=== PATIENT | female | born 1985 | race Caucasian/White ===

== ENCOUNTER 2017-08-30 02:33 | Emergency (ER) | payer SELFPAY ==
[~2017-08-30] VITALS: Ht 172.7 cm; Wt 83.9 kg
[~2017-08-30 02:33] MED LIST: AZIT-21 PO; DOXY100C2 PO; PRCD5U PO; PRM25T PO
[2017-08-30] MEDS ORDERED: CLIN150C17 PO (02:55)
--- NOTE | 2017-08-30 02:56 | ED EENT ---
History of Present Illness General Chief Complaint: Dental Problems/Pain Stated Complaint: DENTAL PAIN Source: patient Exam Limitations: no limitations History of Present Illness Date Seen by Provider: Aug 30, 2017 Time Seen by Provider: 02:51 Initial Comments Patient presents to the ER by private conveyance with a chief complaint that she is having left jaw and upper teeth molar pain. She says she's had dental pain since she was 19. She is having no discharge, fevers, nausea vomiting or immunocompromise. She does not follow with a dentist. Allergies and Home Medications Allergies Coded Allergies: Penicillins (Verified Allergy, Unknown, 10/31/07) Home Medications No Active Prescriptions or Reported Meds Patient Home Medication List Home Medication List Reviewed: Yes Review of Systems Constitutional: No chills, No diaphoresis Eyes: Denies Blindness, Denies Blurred Vision Ears: Denies Dizziness, Denies Pain Nose: denies clots, denies congestion Mouth: denies clots, denies loose teeth Throat: denies pain, denies swelling Respiratory: No cough, No short of breath Cardiovascular: No chest pain, No palpitations Past Gofigao-Kgjkvr-Pykglo Hx Patient Social History Alcohol Use: Denies Use Smoking Status: Current Everyday Smoker Type Used: Cigarettes Recent Foreign Travel: No Contact w/Someone Who Travel: No Physical Exam General Appearance: WD/WN, no apparent distress Eyes: bilateral eye normal inspection, bilateral eye PERRL, bilateral eye EOMI Ears: bilateral ear auricle normal, bilateral ear canal normal, bilateral ear TM normal Nose: normal inspection; No active bleeding Mouth/Throat: other (not one single tooth that is not a black, charrred, stump. No obvious abscess in the gingiva or discharge seen.) Neck: non-tender, supple, normal inspection Cardiovascular: normal peripheral pulses, regular rate, rhythm Respiratory: chest non-tender, lungs clear Progress/Results/Core Measures My Orders Orders - DOMINIK GONG Lidocaine 2% Viscous 15 Ml (Xylocaine Vi (08/30/17 03:00) Ketorolac Injection (Toradol Injection) (08/30/17 03:00) Departure Impression Primary Impression: Dental caries Disposition: 01 HOME, SELF-CARE Condition: Stable Departure-Patient Inst. Decision time for Depature: 02:53 Referrals: NO,LOCAL PHYSICIAN (PCP/Family) Primary Care Physician Patient Instructions: Dental Pain (DC) Add. Discharge Instructions: You can use Orajel or the viscous lidocaine and put on some gauze and I down on top of the teeth that are causing the pain and hold there. You can use Tylenol 1000 mg every 8 hours in addition to ibuprofen 800 mg every 8 hours as needed for pain. Ice to the face as well as heating pads can be helpful. 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 Follow up with a dentist. All discharge instructions reviewed with patient and/or family. Voiced understanding. Scripts Clindamycin HCl (Clindamycin HCl) 150 Mg Capsule 450 MG PO TID for 7 Days, #63 CAP 0 Refills Prov: DOMINIK GONG 08/30/17 DOMINIK GONG Aug 30, 2017 02:56
[2017-08-30] MEDS ORDERED: LIDOCAINE 2% VISCOUS 15 ML UDC PO ONE (03:00)
[2017-08-30] MEDS ORDERED: KETOROLAC 30 MG/ML VIAL IM ONE (03:00)
[2017-08-30 03:05] VITALS: BP 139/93
== END 2017-08-30 03:05 | disposition home or self-care (01) ==
LOC: EDUNIT# 02:33 → ER 02:36
DX: K02.9 Dental caries, unspecified (principal); Z88.0 Allergy status to penicillin
CPT/HCPCS: 96372; 99284

== ENCOUNTER 2018-07-23 01:05 | Emergency (ER) | payer SELFPAY ==
[~2018-07-23] VITALS: Ht 172.7 cm; Wt 81.6 kg
[~2018-07-23 01:05] MED LIST changes: +CLIN150C17 PO
[2018-07-23] MEDS ORDERED: ONDANSETRON 4 MG (ZOFRAN) ORAL DISSOLVE TAB PO ONE (03:30)
[2018-07-23] MEDS ORDERED: KETOROLAC 60 MG/2 ML VIAL IM STA (04:11)
[2018-07-23] MEDS ORDERED: morphine INJ 10 MG/ML 1ML (SYR OR VIAL) IM STA (04:11)
[2018-07-23] MEDS ORDERED: cefTRIAXone 1,000 MG/2.86 ml vial (IM ONLY) IM ONE (04:15)
[2018-07-23] MEDS ORDERED: LIDOCAINE 1% INJ 20 ML 20 ML VIAL INJ ONE (04:15)
[2018-07-23] MEDS ORDERED: RX-ONDANSETRON 4 MG ODT (ZOFRAN) PPK #4 PO STA (04:58)
[2018-07-23] MEDS ORDERED: RX-HYDROCODONE/APAP 5/325 MG #4 TAB PK PO PRN (05:00)
--- NOTE | 2018-07-23 05:05 | ED EENT ---
History of Present Illness General Chief Complaint: Dental Problems/Pain Stated Complaint: DENTAL PAIN,FEVER,VOMITING Nursing Triage Note: Pt arrived by private vehicle for chief complaint of vomiting and dental pain. Pt stated she has had tooth infections for several years now, but this one started 3 days ago. Pt stated she started an antibiotic - clindamycin, but has only had 1 dose of 4 she has taken. This is because pt has can't keep anything down and everything she eats or drinks comes up. Pt stated she can't eat or sleep because her pain is a 9.9/10. Pain is located on bottom left side. Source: patient Exam Limitations: no limitations History of Present Illness Date Seen by Provider: Jul 23, 2018 Time Seen by Provider: 03:21 Initial Comments Evaluation affected by daylight saving time. Patient here with report of significant dental caries. She was seen and started on clindamycin which she is taking but she is only able to take one dose due to nausea and vomiting. Complains of significant pain and is unable to take any lowb-bky-nlcbsxn pain medicine. Timing/Duration: gradual, last week Severity: moderate, severe Location: mouth, dental (left lower) Prearrival Treatment: over the counter meds, prescription meds Associated Symptoms: No cough; facial pain/swelling; No fever; tooth pain Allergies and Home Medications Allergies Coded Allergies: Penicillins (Verified Allergy, Unknown, 10/31/07) Home Medications Clindamycin HCl 150 Mg Capsule, 450 MG PO TID Prescribed by: DOMINIK GONG on 08/30/17 0255 Patient Home Medication List Home Medication List Reviewed: Yes Review of Systems Review of Systems Constitutional: see HPI; No chills, No fever Ears: No Symptoms Reported Nose: no symptoms reported Mouth: see HPI, pain, swelling Throat: no symptoms reported Respiratory: no symptoms reported Cardiovascular: no symptoms reported Skin: no symptoms reported Past Kdrdzsz-Uobuwb-Wggjpp Hx Past Med/Social Hx: Reviewed Nursing Past Med/Soc Hx Patient Social History Alcohol Use: Denies Use Recreational Drug Use: No Smoking Status: Current Everyday Smoker Type Used: Cigarettes 2nd Hand Smoke Exposure: Yes Recent Foreign Travel: No Contact w/Someone Who Travel: No Recent Infectious Disease Expo: No Recent Hopitalizations: No Physical Abuse: No Sexual Abuse: No Mistreated: No Fear: No Immunizations Up To Date Tetanus Booster (TDap): Less than 5yrs Seasonal Allergies Seasonal Allergies: No Past Medical History Surgeries: No Respiratory: No Cardiac: No Neurological: No Genitourinary: No Gastrointestinal: No Musculoskeletal: No Endocrine: No HEENT: No Cancer: No Psychosocial: No Integumentary: No Family Medical History Reviewed Nursing Family Hx Physical Exam Vital Signs Vital Signs - First Documented 07/23/18 03:02 Temp 97.6 Pulse 86 Resp 20 B/P (MAP) 126/99 (108) Pulse Ox 100 O2 Delivery Room Air Height, Weight, BMI Height: 5'8.00" Weight: 180lbs. 0oz. [id number]; BMI Method:Stated General Appearance: WD/WN, no apparent distress Eyes: bilateral eye normal inspection, bilateral eye PERRL, bilateral eye EOMI Ears: bilateral ear auricle normal, bilateral ear canal normal, bilateral ear TM normal Nose: normal inspection Mouth/Throat: pharynx normal, mandibular swelling (left lower), other (every tooth involved with significant dental caries to the gumline for increasing redness and a little swelling to the left lower posterior area.) Neck: full range of motion; No lymphadenopathy (R); lymphadenopathy (L) Cardiovascular: regular rate, rhythm, no murmur Respiratory: lungs clear, normal breath sounds Neurologic/Psychiatric: alert, oriented x 3 Skin: normal color, warm/dry Progress/Results/Core Measures Results/Orders My Orders Orders - KEMAL CRAVEN MD Ondansetron Oral Dissolve Tab (Zofran (07/23/18 03:30) Morphine Injection (Morphine Injection (07/23/18 04:11) Ceftriaxone For Im Use (Rocephin For Im (07/23/18 04:15) Lidocaine 1% Inj 20 Ml (Xylocaine 1% Inj (07/23/18 04:15) Ketorolac Injection (Toradol Injection) (07/23/18 04:11) Rx-Ondansetron Po (Rx-Zofran Po) (07/23/18 04:58) Rx-Hydrocodone/Apap 5-325 Mg (Rx-Vicodin (07/23/18 05:00) Medications Given in ED Current Medications Medications Dose Ordered Sig/Baldev Route Start Time Stop Time Status Last Admin Dose Admin Ceftriaxone Sodium 1,000 mg ONCE ONCE IM 07/23/18 04:15 07/23/18 04:16 DC 07/23/18 04:46 1,000 MG Lidocaine HCl 2.1 ml ONCE ONCE INJ 07/23/18 04:15 07/23/18 04:16 DC 07/23/18 04:47 2.1 ML Ondansetron HCl 4 mg ONCE ONCE PO 07/23/18 03:30 07/23/18 03:31 DC 07/23/18 03:26 4 MG Vital Signs/I&O 07/23/18 03:02 Temp 97.6 Pulse 86 Resp 20 B/P (MAP) 126/99 (108) Pulse Ox 100 O2 Delivery Room Air Blood Pressure Mean: 108 Progress Progress Note : Progress Note Seen and evaluated. Ondansetron by mouth given. She did vomit later. She states may be from the pain. Toradol 60 mg IM, morphine 8 mg IM and Rocephin 1 g IM ordered. We will send patient home with a go pack of Zofran and hydrocodone. Further prescriptions outpatient. Patient understands she needs to follow up with a dentist HATTIE. Discharged home with return precautions. Patient verbalize understanding instructions and agreement with plan. Departure Impression Primary Impression: Dental caries Disposition: HOME, SELF-CARE Condition: Stable Departure-Patient Inst. Decision time for Depature: 05:07 Referrals: NO,LOCAL PHYSICIAN (PCP/Family) Primary Care Physician Patient Instructions: Tooth Abscess (DC), Dental Pain (DC) Add. Discharge Instructions: All discharge instructions reviewed with patient and/or family. Voiced understanding. You may take jkol-tek-unhcjul ibuprofen 800 mg every 8 hours as needed for pain. Take pain medications as prescribed. If you're not taking the pain medicine you may take Tylenol/acetaminophen 1000 mg every 8 hours as needed for pain. Do not take both prescribed pain medicine and acetaminophen at the same time as they both have acetaminophen in them. Drink plenty of fluids. Follow-up with the dentist HATTIE. Return for worse pain, breathing or swallowing problems, weakness or other concerns as needed. Scripts Promethazine HCl (Promethazine Tablet) 25 Mg Tablet 25 MG PO Q8H PRN for NAUSEA/VOMITING, #10 TAB 0 Refills Prov: KEMAL CRAVEN MD 07/23/18 Hydrocodone Bit/Acetaminophen (Hydrocodone/Acetaminophen 5/325mg Tablet) 1 Tab Tab 1 EACH PO Q6H PRN for PAIN-MODERATE MDD 10, #6 TAB 0 Refills Prov: KEMAL CRAVEN MD 07/23/18 KEMAL CRAVEN MD Jul 23, 2018 05:05
[2018-07-23] MEDS ORDERED: PROM25TA14 PO (05:10)
[2018-07-23] MEDS ORDERED: ACHD5005 PO (05:10)
[2018-07-23 05:19] VITALS: BP 124/95
== END 2018-07-23 05:19 | disposition home or self-care (01) ==
LOC: EDUNIT# 01:05 → ER 01:07
DX: K02.9 Dental caries, unspecified (principal); F17.210 Nicotine dependence, cigarettes, uncomplicated; Z88.0 Allergy status to penicillin
CPT/HCPCS: 99284

== ENCOUNTER 2019-05-10 05:52 | Emergency (ER) | payer SELFPAY ==
[~2019-05-10] VITALS: Ht 171 cm; Wt 81.3 kg
[~2019-05-10 05:52] MED LIST changes: +ACHD5005 PO; +PROM25TA14 PO
[2019-05-10] MEDS ORDERED: LACTATED RINGERS 1,000 ML IV ONE ×2 (06:19→07:13)
[2019-05-10] MEDS ORDERED: LACTATED RINGERS 1,000 ML IV STA (06:22)
[2019-05-10] MEDS ORDERED: KETOROLAC 30 MG/ML VIAL IVP STA (06:22)
[2019-05-10 06:30] LABS: BASOPHILS % (AUTO) 0 % (0-10); EOSINOPHILS % (AUTO) 0 % (0-10); HEMATOCRIT 40 % (35-52); HEMOGLOBIN 13.6 G/DL (11.5-16.0); LYMPHOCYTES # (AUTO) 1.6 X 10^3 (1.0-4.0); LYMPHOCYTES % (AUTO) 10 % (12-44); MEAN CORPUSCULAR HEMOGLOBIN 31 PG (25-34); MEAN CORPUSCULAR HGB CONC 34 G/DL (32-36); MEAN CORPUSCULAR VOLUME 92 FL (80-99); MEAN PLATELET VOLUME 11.4 FL (7.4-10.4); MONOCYTES # (AUTO) 1.2 X 10^3 (0.0-1.0); MONOCYTES % (AUTO) 7 % (0-12); NEUTROPHILS # (AUTO) 13.3 X 10^3 (1.8-7.8); NEUTROPHILS % (AUTO) 83 % (42-75); PLATELET COUNT 226 10^3/uL (130-400); RED CELL DISTRIBUTION WIDTH 15.8 % (10.0-14.5); WHITE BLOOD COUNT 16.1 10^3/uL (4.3-11.0)
[2019-05-10] MEDS ORDERED: ONDANSETRON 4 MG/2 ML (SDV) Z0FRAN IVP ONE (06:30)
--- NOTE | 2019-05-10 06:30 | ED Respiratory ---
General Stated Complaint: N,V,POSS FEVER Source: patient Exam Limitations: no limitations (JESSICA ROBLES,MED STUDENT) History of Present Illness Date Seen by Provider: May 10, 2019 Time Seen by Provider: 06:13 Initial Comments Pt ambulates into ED with CC of shortness of breath, cough, nausea and vomiting. States she had cough, chest congestion and malaise beginning two weeks ago that has progressively worsened. She went to see Lenin at [facility], who prescribed her antibiotics and steroids, but she is not able to keep any medications down or eat/drink due to vomiting, which began about three days ago. She associates her vomiting with central chest pain she describes as achy that radiates to her back and lightheadedness. Also notes it is harder to breath if she is lying down or if she exerts herself. Timing/Duration: week, getting worse Severity: moderate Prior Episodes/Possible Cause: no prior episodes Modifying Factors: Worse With Activity, Worse With Coughing, Worse With Lying Down; Improves With Rest Associated Symptoms: cough, dizziness, fever/chills, headache, lightheadedness, muscle aches, nasal congestion, shortness of breath (JESSICA ROBLES,MED STUDENT) Allergies and Home Medications Allergies Coded Allergies: Penicillins (Verified Allergy, Unknown, 10/31/07) Home Medications Clindamycin HCl 150 Mg Capsule, 450 MG PO TID Prescribed by: DOMINIK GONG on 08/30/17 0255 Hydrocodone Bit/Acetaminophen 1 Tab Tab, 1 EACH PO Q6H PRN for PAIN-MODERATE Prescribed by: KEMAL CRAVEN on 07/23/18 0510 Promethazine HCl 25 Mg Tablet, 25 MG PO Q8H PRN for NAUSEA/VOMITING Prescribed by: KEMAL CRAVEN on 07/23/18 0510 Patient Home Medication List Home Medication List Reviewed: Yes (JESSICA ROBLES,MED STUDENT) Review of Systems Review of Systems Constitutional: chills, dizziness, fever, malaise, weakness EENTM: dental problems (extensive dental caries), nose congestion; No hearing loss, No ear pain, No eye pain, No vision loss, No nose pain, No throat pain, No throat swelling Respiratory: see HPI, cough, dyspnea on exertion, orthopnea, short of breath, other (pain with deep inspiration) Cardiovascular: chest pain (achy, onset when vomiting yesterday, thinks she pulled a muscle); No edema, No palpitations Gastrointestinal: No abdominal pain, No constipation, No diarrhea; loss of appetite, nausea, vomiting Genitourinary: decreased output; No incontinence, No pain Musculoskeletal: back pain (radiates from her chest to back ); No joint pain; muscle weakness Skin: No lesions, No lumps, No rash Psychiatric/Neurological: Denies Anxiety, Denies Depressed; Headache (JESSICA ROBLES,BEL STUDENT) Past Vphmtja-Bsoifd-Vzbnan Hx Patient Social History Type Used: Cigarettes 2nd Hand Smoke Exposure: Yes Recent Foreign Travel: No Contact w/Someone Who Travel: No Recent Hopitalizations: No (JESSICA ROBLES,Visi[employer] STUDENT) Immunizations Up To Date Tetanus Booster (TDap): Less than 5yrs (JESSICA ROBLESVisiarc STUDENT) Seasonal Allergies Seasonal Allergies: No (JESSICA ROBLES MED STUDENT) Past Medical History Surgeries: No Respiratory: No Cardiac: No Neurological: No Genitourinary: No Gastrointestinal: No Musculoskeletal: No Endocrine: No HEENT: No Cancer: No Psychosocial: No Integumentary: No (JESSICA ROBLES,Visi[employer] STUDENT) Family Medical History Cancer (lung, father ) (JESSICA ROBLESVisiarc STUDENT) Physical Exam Vital Signs - First Documented 05/10/19 06:00 Temp 37.4 Pulse 98 Resp 20 B/P (MAP) 139/99 (112) Pulse Ox 98 (KEMAL CRAVEN MD) Capillary Refill : (JESSICA ROBLESVisiarc STUDENT) Height: 5'8.00" Weight: 180lbs. 0oz. 81.581958ix; BMI Method:Stated General Appearance: WD/WN, no apparent distress Eyes: Bilateral Eye Normal Inspection, Bilateral Eye PERRL, Bilateral Eye EOMI HEENT: TMs normal, pharyngeal erythema, other (beefy red nostrils, very poor dentition w/ caries, nicotine stains on tongue and teeth ) Neck: supple, tender lateral (TTP R ) Respiratory: chest non-tender, no respiratory distress, no accessory muscle use, crackles (L lower lung base ) Cardiovascular: no edema, no gallop, no murmur, tachycardia Gastrointestinal: non tender, soft Extremities: no pedal edema, no calf tenderness, normal capillary refill Neurologic/Psychiatric: alert, oriented x 3 Skin: normal color, warm/dry Lymphatic: no adenopathy (anterior/posterior cervical, supra/infraclavicular ) (JESSICA ROBLES,MED STUDENT) General Appearance: WD/WN, no apparent distress Respiratory: chest non-tender, no respiratory distress Cardiovascular: no murmur, tachycardia Gastrointestinal: non tender, soft Neurologic/Psychiatric: alert, oriented x 3 (KEMAL CRAVEN MD) Progress/Results/Core Measures Suspected Sepsis SIRS Temperature: Pulse: Respiratory Rate: Laboratory Tests 05/10/19 06:14: White Blood Count 16.1H Blood Pressure / Mean: Laboratory Tests 05/10/19 06:14: Creatinine 0.83, Platelet Count 226, Total Bilirubin 1.0 (JESSICA ROBLES,MED STUDENT) Results/Orders Lab Results Laboratory Tests Test 05/10/19 06:14 Range/Units White Blood Count 16.1 H 4.3-11.0 10^3/uL Red Blood Count 4.38 4.35-5.85 10^6/uL Hemoglobin 13.6 11.5-16.0 G/DL Hematocrit 40 35-52 % Mean Corpuscular Volume 92 80-99 FL Mean Corpuscular Hemoglobin 31 25-34 PG Mean Corpuscular Hemoglobin Concent 34 32-36 G/DL Red Cell Distribution Width 15.8 H 10.0-14.5 % Platelet Count 226 130-400 10^3/uL Mean Platelet Volume 11.4 H 7.4-10.4 FL Neutrophils (%) (Auto) 83 H 42-75 % Lymphocytes (%) (Auto) 10 L 12-44 % Monocytes (%) (Auto) 7 0-12 % Eosinophils (%) (Auto) 0 0-10 % Basophils (%) (Auto) 0 0-10 % Neutrophils # (Auto) 13.3 H 1.8-7.8 X 10^3 Lymphocytes # (Auto) 1.6 1.0-4.0 X 10^3 Monocytes # (Auto) 1.2 H 0.0-1.0 X 10^3 Eosinophils # (Auto) 0.0 0.0-0.3 10^3/uL Basophils # (Auto) 0.0 0.0-0.1 10^3/uL Neutrophils % (Manual) 86 % Lymphocytes % (Manual) 11 % Monocytes % (Manual) 3 % Eosinophils % (Manual) 0 % Basophils % (Manual) 0 % Band Neutrophils 0 % Hypersegmented Neutrophils SLIGHT Hypochromasia SLIGHT Anisocytosis SLIGHT Sodium Level 132 L 135-145 MMOL/L Potassium Level 3.7 3.6-5.0 MMOL/L Chloride Level 99 98-107 MMOL/L Carbon Dioxide Level 17 L 21-32 MMOL/L Anion Gap 16 H 5-14 MMOL/L Blood Urea Nitrogen 12 7-18 MG/DL Creatinine 0.83 0.60-1.30 MG/DL Estimat Glomerular Filtration Rate > 60 BUN/Creatinine Ratio 14 Glucose Level 112 H 70-105 MG/DL Calcium Level 9.9 8.5-10.1 MG/DL Corrected Calcium 9.7 8.5-10.1 MG/DL Total Bilirubin 1.0 0.1-1.0 MG/DL Aspartate Amino Transf (AST/SGOT) 10 5-34 U/L Alanine Aminotransferase (ALT/SGPT) 25 0-55 U/L Alkaline Phosphatase 87 40-136 U/L C-Reactive Protein High Sensitivity 25.84 H 0.00-0.50 MG/DL Total Protein 8.0 6.4-8.2 GM/DL Albumin 4.2 3.2-4.5 GM/DL Serum Test, Qualitative NEGATIVE NEGATIVE (KEMAL CRAVEN MD) Micro Results Microbiology 05/10/19 Influenza Types A,B Antigen (REMIGIO) - Final, Complete (KEMAL CRAVEN MD) My Orders Orders - KEMAL CRAVEN MD Lactated Ringers (Lr 1000 Ml Iv Solution (05/10/19 06:19) Cbc With Automated Diff (05/10/19 06:22) Comprehensive Metabolic Panel (05/10/19 06:22) Hs C Reactive Protein (05/10/19 06:22) Influenza A And B Antigens (05/10/19 06:22) Ondansetron Injection (Zofran Injectio (05/10/19 06:30) Lactated Ringers (Lr 1000 Ml Iv Solution (05/10/19 06:22) Ed Iv/Invasive Line Start (05/10/19 06:22) Ketorolac Injection (Toradol Injection) (05/10/19 06:22) Manual Differential (05/10/19 06:14) Chest Pa/Lat (2 View) (05/10/19 06:41) Hcg,Qualitative Serum (05/10/19 06:42) Lactated Ringers (Lr 1000 Ml Iv Solution (05/10/19 07:13) Blood Culture (05/10/19 06:14) (KEMAL CRAVEN MD) Medications Given in ED Current Medications Medications Dose Ordered Sig/Baldev Route Start Time Stop Time Status Last Admin Dose Admin Lactated Ringer's 1,000 ml @ 0 mls/hr Q0M ONCE IV 05/10/19 07:13 05/10/19 07:15 DC 05/10/19 07:43 1,000 MLS/HR Ondansetron HCl 4 mg ONCE ONCE IVP 05/10/19 06:30 05/10/19 06:31 DC 05/10/19 06:29 4 MG (KEMAL CRAVEN MD) Vital Signs/I&O 05/10/19 06:00 Temp 37.4 Pulse 98 Resp 20 B/P (MAP) 139/99 (112) Pulse Ox 98 (KEMAL CRAVEN MD) Vital Signs/I&O Capillary Refill : (JESSICA ROBLES,MED STUDENT) Progress Note : Time: 06:34 Progress Note Seen and evaluated. Ordered CBC, CMP, chest xray and nasal flu swab. Starting IV with 1L LR, administering 4mg Zofran and 30mg Toradol. (JESSICA ROBLES,MED STUDENT) Progress Note : Progress Note Has seen and evaluated the patient and agree with above except as indicated. I have directed the plan of care. Patient is here with nausea and vomiting without diarrhea. Also has had upper respiratory symptoms including cough. Seen previously at the clinic and initiated on doxycycline and steroids. She has been unable to take the doxycycline due to nausea and vomiting. She does feel dehydrated. Physical exam is of above. Plan for labs, LR 1 L bolus and chest x- ray. Zofran 4 mg IV. Toradol 30 mg IV. Monitor patient. 0849: Repeat LR 1 L bolus complete. Patient overall feeling better. She does have question of left lingular pneumonia. We will initiate treatment outpatient as patient is tolerating by mouth fluids now. She would prefer to try this at home. I did call in prescription for Levaquin 750 mg daily for 7 days and ondansetron 4 mg by mouth every 6 hours when necessary nausea and vomiting #8. Levaquin was 340B prescription. Discharged home with return precautions. Patient verbalize understanding instructions and agreement with plan. (KEMAL CRAVEN MD) Diagnostic Imaging Diagonstic Imaging: Xray Plain Films/CT/US/NM/MRI: chest Comments [facility]. [place], [place] NAME: AIDE ARROYO [facility] REC#: [id number] PT STATUS: REG ER : 1985 PHYSICIAN: KEMAL CRAVEN MD ADMIT DATE: 05/10/19/ER Signed Date of Exam:05/10/19 CHEST PA/LAT (2 VIEW) EXAMINATION: CHEST (PA AND LATERAL) CLINICAL INDICATION: 33-year-old female, fever. Nausea and vomiting. COMPARISON: August 13, 2009. FINDINGS: Heart size and mediastinal contours are unremarkable. There is no identified pneumothorax. There is no pleural effusion. There is airspace consolidation in the lingula. IMPRESSION: 1. Airspace consolidation in the lingula which may relate to pneumonia or other alveolar consolidative process. Recommend correlation clinically and ensure follow-up to resolution. Dictated by: Dictated on workstation # [id number] Dict: 05/10/19741 Trans: 05/10/19805 [facility] [id number] Interpreted by: TRISHA PETERS MD Electronically signed by: TRISHA PETERS MD 05/10/19805 (KEMAL CRAVEN MD) Departure Impression Primary Impression: Left upper lobe pneumonia Qualified Codes: J18.1 - Lobar pneumonia, unspecified organism Additional Impression: Nausea and vomiting Qualified Codes: R11.2 - Nausea with vomiting, unspecified Disposition: 01 HOME, SELF-CARE Condition: Improved Departure-Patient Inst. Decision time for Depature: 08:51 (KEMAL CRAVEN MD) Referrals: NO,LOCAL PHYSICIAN (PCP/Family) Primary Care Physician Patient Instructions: Nausea and Vomiting, Adult (DC), Pneumonia, Adult (DC) Add. Discharge Instructions: Take medications as directed. Drink plenty of fluids by taking small sips dionicio quently of half-strength Gatorade, juice or similar. Clear liquid diet for the next 24 hours and then advance as tolerated. Follow-up with your Dr. in a few days for recheck. You will go to [facility] to tack picker your prescriptions for the reduced fees. Return for worse pain, fever, vomiting, weakness, breathing problems or other concerns as needed. JESSICA ROBLES,MED STUDENT May 10, 2019 06:30 KEMAL CRAVEN MD May 10, 2019 08:53
[2019-05-10 06:44] LABS: ANISOCYTOSIS SLIGHT; BAND NEUTROPHILS 0 %; BASOPHILS % (MANUAL) 0 %; EOSINOPHILS % (MANUAL) 0 %; HYPERSEGMENTED NEUT SLIGHT; HYPOCHROMASIA SLIGHT; LYMPHOCYTES % (MANUAL) 11 %; MONOCYTES % (MANUAL) 3 %; NEUTROPHILS % (MANUAL) 86 %
--- NOTE | 2019-05-10 07:00 | NUR ---
RESTING IN BED. DENIES NEEDS AT THIS TIME.
[2019-05-10 07:01] LABS: ALANINE AMINOTRANSFERASE 25 U/L (0-55); ALBUMIN 4.2 GM/DL (3.2-4.5); ALKALINE PHOSPHATASE 87 U/L (40-136); BUN/CREATININE RATIO 14; CALCIUM 9.9 MG/DL (8.5-10.1); CARBON DIOXIDE 17 MMOL/L (21-32); CHLORIDE 99 MMOL/L (98-107); CREATININE SERUM 0.83 MG/DL (0.60-1.30); GFR ESTIMATED > 60; GLUCOSE 112 MG/DL (70-105); POTASSIUM 3.7 MMOL/L (3.6-5.0); SODIUM 132 MMOL/L (135-145)
--- NOTE | 2019-05-10 08:04 | Diagnostic Imaging Report ---
EXAMINATION: CHEST (PA AND LATERAL) CLINICAL INDICATION: 33-year-old female, fever. Nausea and vomiting. COMPARISON: August 13, 2009. FINDINGS: Heart size and mediastinal contours are unremarkable. There is no identified pneumothorax. There is no pleural effusion. There is airspace consolidation in the lingula. IMPRESSION: 1. Airspace consolidation in the lingula which may relate to pneumonia or other alveolar consolidative process. Recommend correlation clinically and ensure follow-up to resolution. Dictated by: Dictated on workstation # [id number]
[2019-05-10 09:01] VITALS: BP 136/92
== END 2019-05-10 09:01 | disposition home or self-care (01) ==
LOC: EDUNIT# 05:52 → ER 05:55
DX: J18.9 Pneumonia, unspecified organism (principal); Z88.0 Allergy status to penicillin; Z77.22 Contact with and (suspected) exposure to environmental tobacco smoke (acute) (chronic); Z80.1 Family history of malignant neoplasm of trachea, bronchus and lung
CPT/HCPCS: 36415; 71046; 80053; 84703; 85007; 85027; 86141; 87804; 96361; 96374; 96375

== ENCOUNTER 2020-12-13 08:50 | Emergency (ER) | payer SELFPAY ==
[~2020-12-13] VITALS: Ht 172.7 cm; Wt 88.9 kg
[~2020-12-13 08:50] MED LIST changes: -CLIN150C17 PO; +CLIN150C18 PO
--- NOTE | 2020-12-13 09:22 | ED Abdominal Pain ---
General Chief Complaint: Abdominal/GI Problems Stated Complaint: ABD PAIN Source of Information: Patient Exam Limitations: No Limitations History of Present Illness Date Seen by Provider: Dec 13, 2020 Time Seen by Provider: 09:05 Initial Comments Patient is a 35-year-old female who presents to the emergency department today with a chief complaint of 4 days of diffuse abdominal pain. Patient states that she has been on clindamycin sort of chronically over the last several months due to poor dentition. She states that the [facility] told her to be careful with clindamycin and that it could affect her kidneys. Patient is nauseated but no vomiting. Last bowel movement was yesterday, nonblack nonblo andrew. She has severe social anxiety and rarely leaves her house so it took her 4 days to be able to go into the clinic today. She is poorly compliant with medical follow-ups. She has had an IUD in place for 12 years and has not had a Pap smear in 12-23. No fevers chills. No other complaints of illness. She rates her abdominal pain at a "8". Nothing makes her pain any better or any worse. She does not have dysuria, urgency or frequency. She is not having any abnormal vaginal discharge. All other review of systems reviewed and negative except as stated. Timing/Duration: 4-5 Days Severity/Quality: Moderate, Cramping Location: Generalized Abdomen Radiation: No Radiation Activities at Onset: None Associated Symptoms: Heartburn, Nausea/Vomiting Allergies and Home Medications Allergies Coded Allergies: Penicillins (Verified Allergy, Unknown, 10/31/07) Home Medications Clindamycin HCl 150 Mg Capsule, 450 MG PO TID Prescribed by: DOMINIK GONG on 08/30/17 0255 Hydrocodone Bit/Acetaminophen 1 Tab Tab, 1 EACH PO Q6H PRN for PAIN-MODERATE Prescribed by: KEMAL CRAVEN on 07/23/18 0510 Promethazine HCl 25 Mg Tablet, 25 MG PO Q8H PRN for NAUSEA/VOMITING Prescribed by: KMEAL CRAVEN on 07/23/18509 Patient Home Medication List Home Medication List Reviewed: Yes Review of Systems Review of Systems Constitutional: see HPI, other (tearful and anxious) EENTM: No Symptoms Reported Respiratory: No Symptoms Reported Cardiovascular: No Symptoms Reported Gastrointestinal: Abdominal Pain, Nausea Genitourinary: No Symptoms Reported Musculoskeletal: no symptoms reported Skin: no symptoms reported Psychiatric/Neurological: Anxiety All Other Systems Reviewed Negative Unless Noted: Yes Past Kqoomtk-Oqsjuk-Djdqms Hx Patient Social History Tobacco Use?: Yes Tobacco type used: Cigarettes Smoking Status: Current Everyday Smoker Substance use?: No Alcohol Use?: No Pt feels they are or have been: No Immunizations Up To Date Tetanus Booster (TDap): Less than 5yrs Seasonal Allergies Seasonal Allergies: No Past Medical History Surgeries: No Respiratory: No Cardiac: No Neurological: No Genitourinary: No Gastrointestinal: No Musculoskeletal: No Endocrine: No HEENT: No Cancer: No Psychosocial: No Integumentary: No Blood Disorders: No Family Medical History Cancer Physical Exam Vital Signs Vital Signs - First Documented 12/13/20 08:57 Temp 35.5 Pulse 80 Resp 18 B/P (MAP) 136/122 (127) O2 Delivery Room Air Capillary Refill : Height/Weight/BMI Height: 5'8.00" Weight: 180lbs. 0oz. 81.539084nz; 27.00 BMI Method:Stated General Appearance: WD/WN, mild distress HEENT: other (Poor dentition with multiple chronic necrotic teeth) Neck: full range of motion Respiratory: lungs clear, normal breath sounds, no respiratory distress, no accessory muscle use Cardiovascular: regular rate, rhythm Gastrointestinal: normal bowel sounds, soft, tenderness (Patient endorses diffuse abdominal tenderness with palpation but no specific point tenderness is found. She does not have hepatomegaly or splenomegaly. She has nice normal bowel sounds. She seems to have a little bit more tenderness in the suprapubic region. No rebound or involuntary guarding. No rigidity) Back: normal inspection, CVA tenderness (R) Neurologic/Psychiatric: no motor/sensory deficits, alert, oriented x 3, other (anxious and tearful) Skin: normal color, warm/dry Progress/Results/Core Measures Results/Orders Lab Results Laboratory Tests Test 12/13/20 09:05 12/13/20 09:27 Range/Units White Blood Count 15.5 H 4.3-11.0 10^3/uL Red Blood Count 5.17 H 3.80-5.11 10^6/uL Hemoglobin 14.0 11.5-16.0 g/dL Hematocrit 44 35-52 % Mean Corpuscular Volume 85 80-99 fL Mean Corpuscular Hemoglobin 27 25-34 pg Mean Corpuscular Hemoglobin Concent 32 32-36 g/dL Red Cell Distribution Width 16.4 H 10.0-14.5 % Platelet Count 347 130-400 10^3/uL Mean Platelet Volume 10.6 9.0-12.2 fL Immature Granulocyte % (Auto) 0 % Neutrophils (%) (Auto) 77 H 42-75 % Lymphocytes (%) (Auto) 17 12-44 % Monocytes (%) (Auto) 5 0-12 % Eosinophils (%) (Auto) 0 0-10 % Basophils (%) (Auto) 0 0-10 % Neutrophils # (Auto) 12.0 H 1.8-7.8 10^3/uL Lymphocytes # (Auto) 2.6 1.0-4.0 10^3/uL Monocytes # (Auto) 0.8 0.0-1.0 10^3/uL Eosinophils # (Auto) 0.1 0.0-0.3 10^3/uL Basophils # (Auto) 0.1 0.0-0.1 10^3/uL Immature Granulocyte # (Auto) 0.1 0.0-0.1 10^3/uL Neutrophils % (Manual) 73 % Lymphocytes % (Manual) 17 % Monocytes % (Manual) 8 % Eosinophils % (Manual) 1 % Band Neutrophils 1 % Blood Morphology Comment NORMAL Sodium Level 142 135-145 MMOL/L Potassium Level 3.5 L 3.6-5.0 MMOL/L Chloride Level 102 98-107 MMOL/L Carbon Dioxide Level 25 21-32 MMOL/L Anion Gap 15 H 5-14 MMOL/L Blood Urea Nitrogen 7 7-18 MG/DL Creatinine 0.83 0.60-1.30 MG/DL Estimat Glomerular Filtration Rate 78 BUN/Creatinine Ratio 8 Glucose Level 118 H 70-105 MG/DL Calcium Level 9.9 8.5-10.1 MG/DL Corrected Calcium 9.6 8.5-10.1 MG/DL Total Bilirubin 0.3 0.1-1.0 MG/DL Aspartate Amino Transf (AST/SGOT) 17 5-34 U/L Alanine Aminotransferase (ALT/SGPT) 10 0-55 U/L Alkaline Phosphatase 108 40-136 U/L Total Protein 8.2 6.4-8.2 GM/DL Albumin 4.4 3.2-4.5 GM/DL Lipase 11 8-78 U/L Urine Color YELLOW Urine Clarity SL CLOUDY Urine pH 6.5 5-9 Urine Specific [place] >=1.030 1.016-1.022 Urine Protein TRACE H NEGATIVE Urine Glucose (UA) NEGATIVE NEGATIVE Urine Ketones TRACE H NEGATIVE Urine Nitrite NEGATIVE NEGATIVE Urine Bilirubin 1+ H NEGATIVE Urine Urobilinogen 1.0 < = 1.0 MG/DL Urine Leukocyte Esterase 1+ H NEGATIVE Urine RBC (Auto) 1+ H NEGATIVE Urine RBC NONE /HPF Urine WBC 5-10 H /HPF Urine Squamous Epithelial Cells 5-10 /HPF Urine Crystals NONE /LPF Urine Bacteria LARGE H /HPF Urine Casts NONE /LPF Urine Mucus LARGE H /LPF Urine Culture Indicated YES My Orders Orders - EDEL DOZIER MD Cbc With Automated Diff (12/13/20 09:17) Ed Iv/Invasive Line Start (12/13/20 09:17) Comprehensive Metabolic Panel (12/13/20 09:17) Lipase (12/13/20 09:17) Ketorolac Injection (Toradol Injection) (12/13/20 09:30) Ua Culture If Indicated (12/13/20 09:22) Manual Differential (12/13/20 09:05) Urine Culture (12/13/20 09:27) Ns Iv 1000 Ml (Sodium Chloride 0.9%) (12/13/20 10:45) Ct Abdomen/Pelvis Wo (12/13/20 10:32) Medications Given in ED Current Medications Medications Dose Ordered Sig/Baldev Route Start Time Stop Time Status Last Admin Dose Admin Ketorolac Tromethamine 15 mg ONCE ONCE IVP 12/13/20 09:30 12/13/20 09:31 DC 12/13/20 09:28 15 MG Vital Signs/I&O 12/13/20 08:57 Temp 35.5 Pulse 80 Resp 18 B/P (MAP) 136/122 (127) O2 Delivery Room Air Progress Progress Note : Time: 11:35 Progress Note [facility] [place] [place] NAME: [facility] REC#: [id number] PT STATUS: REG ER : 1985 PHYSICIAN: EDEL DOZIER MD ADMIT DATE: 12/13/20/ER Draft Date of Exam:12/13/20 CT ABDOMEN/PELVIS WO EXAMINATION: CT abdomen and pelvis without contrast. TECHNIQUE: Multiple contiguous axial images were obtained through the abdomen and pelvis without the use of intravenous contrast. All CT scans use one or more of the following dose optimizing techniques: automated exposure control, MA and/or KvP adjustment based on patient size and exam type or iterative reconstruction. HISTORY: Abdominal pain and leukocytosis. COMPARISON: None available. FINDINGS: Limited views of the lower thorax are unremarkable. The liver is normal without focal lesion. There is no biliary ductal dilation. Gallbladder is normal. Pancreas is normal. Spleen is normal. Adrenal glands are normal. The kidneys are normal. There is no hydronephrosis. Urinary bladder is normal. Intrauterine device is present. Uterus and ovaries are normal for age. Visualized bowel is normal in caliber without obstruction or inflammation. The appendix is normal. No free fluid or air. No abdominal or pelvic lymphadenopathy. Aorta is normal in caliber without aneurysm. There are no suspicious osseus lesions. IMPRESSION: 1. No acute abnormality in the abdomen or pelvis. Dictated on workstation # [id number] Dict: 12/13/20 1103 Trans: 12/13/20 1106 CV [id number] Interpreted by: TREVER JUDGE MD Electronically signed by: Departure Impression Primary Impression: Abdominal pain Qualified Codes: R10.84 - Generalized abdominal pain Additional Impression: Urinary tract infection Qualified Codes: N30.00 - Acute cystitis without hematuria Disposition: HOME, SELF-CARE Condition: Stable Departure-Patient Inst. Decision time for Depature: 11:36 Referrals: [facility] (PCP/Family) Primary Care Physician Patient Instructions: Urinary Tract Infection, Adult (DC) Add. Discharge Instructions: Drink plenty of fluids to stay well-hydrated. Follow a clear liquid for today and then advance your diet as tolerated. Take the Bactrim, twice daily for 5 days. 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 Return to the emergency room for reevaluation if you develop any worsening abdominal pain especially with fever vomiting or other emergent concerns. Scripts Sulfamethoxazole/Trimethoprim (Bactrim Ds Tablet) 1 Each Tablet 1 EACH PO BID, #10 TAB Prov: EDEL DOZIER MD 12/13/20 EDEL DOZIER MD Dec 13, 2020 09:22
[2020-12-13] MEDS ORDERED: KETOROLAC 30 MG/ML VIAL IVP ONE (09:30)
[2020-12-13 09:32] LABS: BASOPHILS # (AUTO) 0.1 10^3/uL (0.0-0.1); BASOPHILS % (AUTO) 0 % (0-10); EOSINOPHILS # (AUTO) 0.1 10^3/uL (0.0-0.3); EOSINOPHILS % (AUTO) 0 % (0-10); HEMATOCRIT 44 % (35-52); LYMPHOCYTES # (AUTO) 2.6 10^3/uL (1.0-4.0); LYMPHOCYTES % (AUTO) 17 % (12-44); MEAN CORPUSCULAR HEMOGLOBIN 27 pg (25-34); MEAN CORPUSCULAR HGB CONC 32 g/dL (32-36); MEAN CORPUSCULAR VOLUME 85 fL (80-99); MEAN PLATELET VOLUME 10.6 fL (9.0-12.2); MONOCYTES # (AUTO) 0.8 10^3/uL (0.0-1.0); MONOCYTES % (AUTO) 5 % (0-12); NEUTROPHILS % (AUTO) 77 % (42-75); PLATELET COUNT 347 10^3/uL (130-400); WHITE BLOOD COUNT 15.5 10^3/uL (4.3-11.0)
[2020-12-13 09:34] LABS: BILIRUBIN,URINE 1+ (NEGATIVE); CLARITY,URINE SL CLOUDY; COLOR,URINE YELLOW; GLUCOSE, URINE (UA) NEGATIVE (NEGATIVE); KETONES,URINE TRACE (NEGATIVE); LEUKOCYTE ESTERASE ,URINE 1+ (NEGATIVE); NITRITE,URINE NEGATIVE (NEGATIVE); PH,URINE 6.5 (5-9); PROTEIN,URINE TRACE (NEGATIVE)
[2020-12-13 09:43] LABS: ALBUMIN 4.4 GM/DL (3.2-4.5); POTASSIUM 3.5 MMOL/L (3.6-5.0)
[2020-12-13 09:44] LABS: CALCIUM 9.9 MG/DL (8.5-10.1)
[2020-12-13 09:46] LABS: TOTAL PROTEIN 8.2 GM/DL (6.4-8.2)
[2020-12-13 09:47] LABS: BILIRUBIN,TOTAL 0.3 MG/DL (0.1-1.0)
[2020-12-13 09:49] LABS: CREATININE SERUM 0.83 MG/DL (0.60-1.30)
[2020-12-13 09:56] LABS: BAND NEUTROPHILS 1 %; NEUTROPHILS % (MANUAL) 73 %
[2020-12-13 09:57] LABS: EOSINOPHILS % (MANUAL) 1 %; LYMPHOCYTES % (MANUAL) 17 %; MONOCYTES % (MANUAL) 8 %; RBC MORPH NORMAL
[2020-12-13 10:27] LABS: BACTERIA,URINE LARGE /HPF
[2020-12-13] MEDS ORDERED: NS IV 1000 ML 1,000 ML IV SCH (10:45)
--- NOTE | 2020-12-13 11:07 | Diagnostic Imaging Report ---
EXAMINATION: CT abdomen and pelvis without contrast. TECHNIQUE: Multiple contiguous axial images were obtained through the abdomen and pelvis without the use of intravenous contrast. All CT scans use one or more of the following dose optimizing techniques: automated exposure control, MA and/or KvP adjustment based on patient size and exam type or iterative reconstruction. HISTORY: Abdominal pain and leukocytosis. COMPARISON: None available. FINDINGS: Limited views of the lower thorax are unremarkable. The liver is normal without focal lesion. There is no biliary ductal dilation. Gallbladder is normal. Pancreas is normal. Spleen is normal. Adrenal glands are normal. The kidneys are normal. There is no hydronephrosis. Urinary bladder is normal. Intrauterine device is present. Uterus and ovaries are normal for age. Visualized bowel is normal in caliber without obstruction or inflammation. The appendix is normal. No free fluid or air. No abdominal or pelvic lymphadenopathy. Aorta is normal in caliber without aneurysm. There are no suspicious osseus lesions. IMPRESSION: 1. No acute abnormality in the abdomen or pelvis. Dictated by: Dictated on workstation # [id number]
[2020-12-13] MEDS ORDERED: SULF1TAB38 PO (11:44)
[2020-12-13 11:48] VITALS: BP 112/75
== END 2020-12-13 11:48 | disposition home or self-care (01) ==
LOC: EDUNIT# 08:50 → ER 08:52
DX: R10.84 Generalized abdominal pain (principal); N39.0 Urinary tract infection, site not specified; F17.210 Nicotine dependence, cigarettes, uncomplicated
CPT/HCPCS: 36415; 74176; 80053; 81000; 83690; 85007; 85027; 87088

== ENCOUNTER 2020-12-29 06:55 | Inpatient (IN) | payer SELFPAY ==
[~2020-12-29] VITALS: Ht 175 cm; Wt 87.1 kg
[~2020-12-29 06:55] MED LIST changes: +SULF1TAB38 PO
[2020-12-29] MEDS ORDERED: ASPIRIN 81 MG CHEW (CHILDREN'S ASA) PO ONE (07:15)
[2020-12-29 07:21] LABS: BASOPHILS # (AUTO) 0.1 10^3/uL (0.0-0.1); BASOPHILS % (AUTO) 1 % (0-10); EOSINOPHILS # (AUTO) 0.2 10^3/uL (0.0-0.3); EOSINOPHILS % (AUTO) 1 % (0-10); HEMATOCRIT 43 % (35-52); HEMOGLOBIN 13.8 g/dL (11.5-16.0); LYMPHOCYTES % (AUTO) 37 % (12-44); MEAN CORPUSCULAR HEMOGLOBIN 27 pg (25-34); MEAN CORPUSCULAR HGB CONC 32 g/dL (32-36); MEAN CORPUSCULAR VOLUME 85 fL (80-99); MEAN PLATELET VOLUME 10.7 fL (9.0-12.2); MONOCYTES # (AUTO) 1.4 10^3/uL (0.0-1.0); MONOCYTES % (AUTO) 6 % (0-12); NEUTROPHILS # (AUTO) 11.8 10^3/uL (1.8-7.8); NEUTROPHILS % (AUTO) 55 % (42-75); PLATELET COUNT 403 10^3/uL (130-400); WHITE BLOOD COUNT 21.6 10^3/uL (4.3-11.0)
[2020-12-29] MEDS: NITROGLYCERIN 0.4 MG SL TABS BTL 25'S SL PRN ×2 (07:21→07:29)
--- NOTE | 2020-12-29 07:23 | ED Chest Pain ---
General Chief Complaint: Chest Pain Stated Complaint: VOMITING,CP,ARM PAIN Nursing Triage Note: Pt arrives with SO from home. 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 Source: patient Exam Limitations: no limitations History of Present Illness Date Seen by Provider: Dec 29, 2020 Time Seen by Provider: 07:06 Initial Comments Patient to the ER by private conveyance from home with her significant other and chief complaint that about 3:30 in the morning she was struck with severe substernal chest pain radiating through to her back and a syncopal episode. After coming to she yelled and woke her and he came and discovered her brought her to the ER. She has never had pain like this before and rates it as a 12 out of 10. She has no known medical history. She says she smokes cigarettes but does not know she has a history of hypercholesterolemia, hypertension, diabetes. No known family history either. She does not attend with a doctor. She denies use of stimulants or recreational drugs. She denies use of alcohol. Last meal was 10:00 last night. She did drink some water this morning around the time the chest pain started at 530. Patient is on some antibiotics presently for ear infection but they do not know which drug it is. Patient was here 2 weeks ago and seen for diffuse abdominal pain x4 days. She states she had been on clindamycin chronically over the past several months due to her dentition. At the time she states she has severe social anxiety, rarely leaving her house. She has an IUD in place for the past 12 years, unclear what kind. She at that time had a CT of the abdomen which was unremarkable and labs which were unrevealing except for a possible UTI versus contamination. Patient was put on Bactrim for 5 days and told to follow-up with primary care. Allergies and Home Medications Allergies Coded Allergies: Penicillins (Verified Allergy, Unknown, 10/31/07) Home Medications Clindamycin HCl 150 Mg Capsule, 450 MG PO TID Prescribed by: DOMINIK GONG on 08/30/17 0255 Hydrocodone Bit/Acetaminophen 1 Tab Tab, 1 EACH PO Q6H PRN for PAIN-MODERATE Prescribed by: KEMAL CRAVEN on 07/23/18 0510 Promethazine HCl 25 Mg Tablet, 25 MG PO Q8H PRN for NAUSEA/VOMITING Prescribed by: KEMAL CRAVEN on 07/23/18 0510 Sulfamethoxazole/Trimethoprim 1 Each Tablet, 1 EACH PO BID Prescribed by: EDEL DOZIER on 12/13/20 1144 Patient Home Medication List Home Medication List Reviewed: Yes Review of Systems Review of Systems Constitutional: No chills, No fever EENTM: No Blurred Vision, No Double Vision Respiratory: Denies Cough, Denies Shortness of Air Cardiovascular: Chest Pain; Denies Edema, Denies Irregular Heart Rate Gastrointestinal: Denies Abdominal Pain, Denies Constipated, Denies Diarrhea, Denies Nausea Past Iyxlwpl-Gicahi-Ayhhdz Hx Patient Social History Tobacco Use?: Yes Use of E-Cig and/or Vaping dev: No Substance use?: No Alcohol Use?: No Immunizations Up To Date Tetanus Booster (TDap): Less than 5yrs Seasonal Allergies Seasonal Allergies: No Past Medical History Surgeries: No Respiratory: No Cardiac: No Neurological: No Last Menstrual Period: Dec 29, 2020 Genitourinary: No Gastrointestinal: No Musculoskeletal: No Endocrine: No HEENT: No Cancer: No Psychosocial: No Integumentary: No Blood Disorders: No Family Medical History Cancer Physical Exam Vital Signs Vital Signs - First Documented 12/29/20 07:05 Temp 36.4 Pulse 65 Resp 20 B/P (MAP) 175/112 (133) Pulse Ox 99 O2 Delivery Room Air FiO2 99 Capillary Refill : Less Than 3 Seconds Height, Weight, BMI Height: 5'8.00" Weight: 180lbs. 0oz. 81.680359rw; 3626.00 BMI Method:Stated General Appearance: Anxious, Moderate Distress HEENT: PERRL/EOMI; No Moist Mucous Membranes; Other (Extensive, advanced dental caries) Neck: Full Range of Motion, Normal Inspection Respiratory: Lungs Clear, Normal Breath Sounds, No Accessory Muscle Use, No Respiratory Distress Cardiovascular: Regular Rate, Rhythm, No Edema, Normal Peripheral Pulses Gastrointestinal: Normal Bowel Sounds, Non Tender, Soft Extremity: Normal Capillary Refill, Normal Inspection, No Pedal Edema Neurologic/Psychiatric: Alert, Oriented x3 Skin: Normal Color, Warm/Dry Progress/Results/Core Measures Results/Orders Lab Results Laboratory Tests Test 12/29/20 07:06 12/29/20 07:08 Range/Units White Blood Count 21.6 H 4.3-11.0 10^3/uL Red Blood Count 5.07 3.80-5.11 10^6/uL Hemoglobin 13.8 11.5-16.0 g/dL Hematocrit 43 35-52 % Mean Corpuscular Volume 85 80-99 fL Mean Corpuscular Hemoglobin 27 25-34 pg Mean Corpuscular Hemoglobin Concent 32 32-36 g/dL Red Cell Distribution Width 16.5 H 10.0-14.5 % Platelet Count 403 H 130-400 10^3/uL Mean Platelet Volume 10.7 9.0-12.2 fL Immature Granulocyte % (Auto) 1 % Neutrophils (%) (Auto) 55 42-75 % Lymphocytes (%) (Auto) 37 12-44 % Monocytes (%) (Auto) 6 0-12 % Eosinophils (%) (Auto) 1 0-10 % Basophils (%) (Auto) 1 0-10 % Neutrophils # (Auto) 11.8 H 1.8-7.8 10^3/uL Lymphocytes # (Auto) 8.0 H 1.0-4.0 10^3/uL Monocytes # (Auto) 1.4 H 0.0-1.0 10^3/uL Eosinophils # (Auto) 0.2 0.0-0.3 10^3/uL Basophils # (Auto) 0.1 0.0-0.1 10^3/uL Immature Granulocyte # (Auto) 0.1 0.0-0.1 10^3/uL Neutrophils % (Manual) 49 % Lymphocytes % (Manual) 41 % Monocytes % (Manual) 8 % Eosinophils % (Manual) 2 % Basophils % (Manual) 0 % Band Neutrophils 0 % Anisocytosis SLIGHT Prothrombin Time 12.6 12.2-14.7 SEC INR Comment 0.9 0.8-1.4 Activated Partial Thromboplast Time 25 24-35 SEC Sodium Level 137 135-145 MMOL/L Potassium Level 3.3 L 3.6-5.0 MMOL/L Chloride Level 103 98-107 MMOL/L Carbon Dioxide Level 21 21-32 MMOL/L Anion Gap 13 5-14 MMOL/L Blood Urea Nitrogen 9 7-18 MG/DL Creatinine 0.84 0.60-1.30 MG/DL Estimat Glomerular Filtration Rate 77 BUN/Creatinine Ratio 11 Glucose Level 147 H 70-105 MG/DL Calcium Level 9.5 8.5-10.1 MG/DL Corrected Calcium 9.5 8.5-10.1 MG/DL Magnesium Level 2.4 1.6-2.4 MG/DL Total Bilirubin 0.3 0.1-1.0 MG/DL Aspartate Amino Transf (AST/SGOT) 17 5-34 U/L Alanine Aminotransferase (ALT/SGPT) 12 0-55 U/L Alkaline Phosphatase 76 40-136 U/L Myoglobin 26.4 10.0-92.0 NG/ML Troponin I < 0.028 <0.028 NG/ML Total Protein 7.3 6.4-8.2 GM/DL Albumin 4.0 3.2-4.5 GM/DL Lipase 15 8-78 U/L Serum Test, Qualitative NEGATIVE NEGATIVE My Orders Orders - DOMINIK GONG Cbc With Automated Diff (12/29/20 07:14) Magnesium (12/29/20 07:14) Ekg Tracing (12/29/20 07:14) Comprehensive Metabolic Panel (12/29/20 07:14) Myoglobin Serum (12/29/20 07:14) Protime With Inr (12/29/20 07:14) Partial Thromboplastin Time (12/29/20 07:14) O2 (12/29/20 07:14) Monitor-Rhythm Ecg Trace Only (12/29/20 07:14) Lipid Panel (12/30/20 06:00) Ed Iv/Invasive Line Start (12/29/20 07:14) Nitroglycerin 0.4 Mg Btl 25's (Nitrostat (12/29/20 07:15) Aspirin Chewable Tablet (Baby Aspirin Ch (12/29/20 07:15) Hcg,Qualitative Serum (12/29/20 07:14) Ua Culture If Indicated (12/29/20 07:14) Troponin I (12/29/20 07:08) Manual Differential (12/29/20 07:08) Lipase (12/29/20 07:08) Medications Given in ED Current Medications Medications Dose Ordered Sig/Baldev Route Start Time Stop Time Status Last Admin Dose Admin Aspirin 324 mg ONCE ONCE PO 12/29/20 07:15 12/29/20 07:16 DC 12/29/20 07:21 324 MG Nitroglycerin 0.4 mg UD PRN SL 12/29/20 07:15 12/29/20 07:29 0.4 MG Vital Signs/I&O 12/29/20 12/29/20 12/29/20 12/29/20 07:05 07:05 07:10 07:31 Temp 36.4 36.4 Pulse 65 71 Resp 20 20 B/P (MAP) 175/112 (133) 157/118 Pulse Ox 99 99 98 O2 Delivery Room Air Room Air Room Air Room Air FiO2 99 Blood Pressure Mean: 133 Progress Progress Note : Time: 07:[address] Marcos, cardiology was consulted and is on his way to the ER. The Daytime Babysitter was activated for ST elevation in the anterior lateral leads. Labs including a urine drug screen, serum hCG were ordered. Aspirin 324 mg to be chewed and swallowed was ordered. We will start with some nitroglycerin since the patient has significantly elevated blood pressure 180/110 and if that does not help her pain significantly then we will use morphine. Other differential might include a infective myocarditis, dissecting aortitis such as from a latent syphilis infection. Initial ECG Impression Date: Dec 29, 2020 Initial ECG Impression Time: 07:09 Initial ECG Rate: 65 Initial ECG Rhythm: Normal Sinus Initial ECG Intervals: Normal Initial ECG Impression: Acute NM Initial ECG Comparisson: No Previous ECG Available Comment ST elevation 1-2 blocks in the V2 through V6 leads with some reciprocal depression seen in lead III and aVF. Departure Communication (Admissions) Time/Spoke to Admitting Phy: 07:29 Dr. Marcos to the ER visit with the patient and consented her to go to [facility] Bab[facility]. Impression Primary Impression: STEMI (ST elevation myocardial infarction) Qualified Codes: I21.02 - ST elevation (STEMI) myocardial infarction involving left anterior descending coronary artery Disposition: ADMITTED INPATIENT Condition: Stable Admissions Decision to Admit Reason: Admit from ER (General) Decision to Admit/Date: Dec 29, 2020 Time/Decision to Admit Time: 07:30 Departure-Patient Inst. Referrals: [facility] (PCP/Family) Primary Care Physician DOMINIK GONG Dec 29, 2020 07:23
[2020-12-29 07:29] LABS: CHLORIDE 103 MMOL/L (98-107); POTASSIUM 3.3 MMOL/L (3.6-5.0); SODIUM 137 MMOL/L (135-145)
[2020-12-29 07:31] LABS: CALCIUM 9.5 MG/DL (8.5-10.1)
[2020-12-29 07:32] LABS: GLUCOSE 147 MG/DL (70-105); TOTAL PROTEIN 7.3 GM/DL (6.4-8.2)
[2020-12-29 07:33] LABS: CARBON DIOXIDE 21 MMOL/L (21-32); INR 0.9 (0.8-1.4); PROTHROMBIN TIME PATIENT 12.6 SEC (12.2-14.7)
[2020-12-29 07:34] LABS: BILIRUBIN,TOTAL 0.3 MG/DL (0.1-1.0)
[2020-12-29 07:35] LABS: ALKALINE PHOSPHATASE 76 U/L (40-136); CREATININE SERUM 0.84 MG/DL (0.60-1.30); GFR ESTIMATED 77
[2020-12-29 07:36] LABS: BUN/CREATININE RATIO 11
[2020-12-29 07:38] LABS: ALANINE AMINOTRANSFERASE 12 U/L (0-55); MAGNESIUM 2.4 MG/DL (1.6-2.4)
--- NOTE | 2020-12-29 07:38 | Pre-Op Note & Conscious Sedat ---
Pre-Operative Progress Note H&P Reviewed The H&P was reviewed, patient examined and no changes noted. Date H&P Reviewed: Dec 29, 2020 Time H&P Reviewed: 07:38 Pre-Op Diagnosis: Anterior STEMI Conscious Sedation Pre-Proced ASA Score 3 For ASA 3 and 4: Consider anesthesia and medical clearance. Also, for patients with a history of failed moderate sedation consider anesthesia. Airway Lungs Heart ASA score ASA 1: a normal healthy patient ASA 2: a patient with a mild systemic disease (mid diabetes, controlled hypertension, obesity ASA 3: a patient with a severe systemic disease that limits activity (angina, COPD, prior Myocardial infarction) ASA 4: a patient with an incapacitating disease that is a constant threat to life (CHF, renal failure) ASA 5: a moribund patient not expected to survive 24 hrs. (ruptured aneurysm) ASA 6: a declared brain- patient whose organs are being harvested. For emergent operations, add the letter E after the classification Mallampati Classification Grade 2 Sedation Plan Analgesia, Amnesia, Plan communicated to team members, Discussed options with patient/fam, Discussed risks with patient/fam The patient is an appropriate candidate to undergo the planned procedure, sedation, and anesthesia. The patient immediately re-assessed prior to indication. DONAL AGUILAR JR, MD Dec 29, 2020 07:38
--- NOTE | 2020-12-29 07:38 | Consultation-Cardiology ---
HPI-Cardiology Cardiology Consultation: Date of Consultation 12/29/2020 Date of Admission 12/29/2020 Attending Physician Donal Marcos Jr, MD Admitting Physician [place] Consulting Physician DONAL MARCOS JR, MD HPI: Time Seen by a Provider: 07:45 Chief Complaint: Reason for consultation: Possible anterior STEMI. I had the pleasure of seeing Saira in the emergency room at [facility] this morning. She has no known history of coronary artery disease and her only cardiac risk factor appears to be cigarette smoking. She is presently being treated for dental abscesses as well as some sort of gastrointestinal infection. Early this morning she got up to urinate and collapsed on the floor. She remembers waking up on the floor and calling out to her significant other. He came to her side and states that she was awake but confused. She was complaining of chest discomfort. After short while, they came to the emergency room for further evaluation. She underwent an electrocardiogram that showed significant anterior ST elevation. Therefore, a code STEMI was called. I was consulted to perform emergency cardiac catheterization. When I saw her in the emergency room, her chest discomfort had improved but not completely resolved. She denies dyspnea, paroxysmal nocturnal dyspnea, orthopnea, palpitations, lightheadedness, syncope, or ankle edema. She denies any illegal drug use although based upon the appearance of her teeth, I suspect she may use methamphetamine. Certain portions of this document may have been dictated utilizing voice recognition technology. Inherent to this technology, typographical and grammatical errors may exist. As much as I am diligent to identify and correct these mistakes, some errors may remain in the document. Review of Systems-Cardiology Review of Systems Other comments Review of 10 organ systems is as per the history of present illness, otherwise negative. NPK-[id number]-Nmvppi Hx Patient Social History Smoking Status: Current Everyday Smoker 2nd Hand Smoke Exposure: Yes Have you traveled recently?: No Alcohol Use?: No Pt feels they are or have been: No Tobacco type used: Cigarettes Immunizations Up To Date Tetanus Booster (TDap): Less than 5yrs Past Medical History PMH As described under Assessment. Family Medical History Family Medical History: The patient does not know of any family history of premature coronary artery disease. Allergies and Home Medications Allergies Coded Allergies: Penicillins (Verified Allergy, Unknown, 10/31/07) Home Medications Clindamycin HCl 150 Mg Capsule, 450 MG PO TID Prescribed by: DOMINIK GONG on 08/30/17 0255 Hydrocodone Bit/Acetaminophen 1 Tab Tab, 1 EACH PO Q6H PRN for PAIN-MODERATE Prescribed by: KEMAL CRAVEN on 07/23/18 0510 Promethazine HCl 25 Mg Tablet, 25 MG PO Q8H PRN for NAUSEA/VOMITING Prescribed by: KEMAL CRAVEN on 07/23/18 0510 Sulfamethoxazole/Trimethoprim 1 Each Tablet, 1 EACH PO BID Prescribed by: EDEL DOZIER on 12/13/20 1144 Patient Home Medication List Home Medication List Reviewed: Yes Exam Vital Signs Vital Signs Date Time Temp Pulse Resp B/P (MAP) Pulse Ox O2 Delivery O2 Flow Rate FiO2 12/29/20 10:15 70 130/97 (108) 99 Room Air 12/29/20 09:45 7 12/29/20 07:31 36.4 12/29/20 07:05 99 Physical Exam General: Alert. No acute distress. Well nourished and appears stated age. Eye: Extraocular movements are intact. Conjunctivae are clear. There are no xanthelasma. HENT: Normocephalic. Atraumatic. Carotid pulsations 2/2 without bruits. Very poor dentition. Neck: Jugular venous pressure does not appear elevated. No thyromegaly appreciated. Respiratory: Lungs are clear to auscultation. Respirations are non-labored. Breath sounds are equal. Symmetrical chest wall expansion. Cardiovascular: Normal rate. Regular rhythm. No murmur. No gallop. Point of maximal impulse is not appear displaced. Good pulses equal in all extremities. No edema. Gastrointestinal: Soft. Normal bowel sounds. Skin: Skin turgor is normal. There is no pallor. Musculoskeletal: No kyphosis or scoliosis appreciated. Neurologic: Alert and oriented to person, place, time. Cranial nerves 3-12 appear grossly intact. The patient has good motor tone strength in the upper and lower extremities bilaterally. Psychiatric: Cooperative. Appropriate mood & affect. Labs Laboratory Tests Test 12/29/20 07:06 12/29/20 07:08 Range/Units White Blood Count 21.6 H 4.3-11.0 10^3/uL Red Blood Count 5.07 3.80-5.11 10^6/uL Hemoglobin 13.8 11.5-16.0 g/dL Hematocrit 43 35-52 % Mean Corpuscular Volume 85 80-99 fL Mean Corpuscular Hemoglobin 27 25-34 pg Mean Corpuscular Hemoglobin Concent 32 32-36 g/dL Red Cell Distribution Width 16.5 H 10.0-14.5 % Platelet Count 403 H 130-400 10^3/uL Mean Platelet Volume 10.7 9.0-12.2 fL Immature Granulocyte % (Auto) 1 % Neutrophils (%) (Auto) 55 42-75 % Lymphocytes (%) (Auto) 37 12-44 % Monocytes (%) (Auto) 6 0-12 % Eosinophils (%) (Auto) 1 0-10 % Basophils (%) (Auto) 1 0-10 % Neutrophils # (Auto) 11.8 H 1.8-7.8 10^3/uL Lymphocytes # (Auto) 8.0 H 1.0-4.0 10^3/uL Monocytes # (Auto) 1.4 H 0.0-1.0 10^3/uL Eosinophils # (Auto) 0.2 0.0-0.3 10^3/uL Basophils # (Auto) 0.1 0.0-0.1 10^3/uL Immature Granulocyte # (Auto) 0.1 0.0-0.1 10^3/uL Neutrophils % (Manual) 49 % Lymphocytes % (Manual) 41 % Monocytes % (Manual) 8 % Eosinophils % (Manual) 2 % Basophils % (Manual) 0 % Band Neutrophils 0 % Anisocytosis SLIGHT Prothrombin Time 12.6 12.2-14.7 SEC INR Comment 0.9 0.8-1.4 Activated Partial Thromboplast Time 25 24-35 SEC Sodium Level 137 135-145 MMOL/L Potassium Level 3.3 L 3.6-5.0 MMOL/L Chloride Level 103 98-107 MMOL/L Carbon Dioxide Level 21 21-32 MMOL/L Anion Gap 13 5-14 MMOL/L Blood Urea Nitrogen 9 7-18 MG/DL Creatinine 0.84 0.60-1.30 MG/DL Estimat Glomerular Filtration Rate 77 BUN/Creatinine Ratio 11 Glucose Level 147 H 70-105 MG/DL Calcium Level 9.5 8.5-10.1 MG/DL Corrected Calcium 9.5 8.5-10.1 MG/DL Magnesium Level 2.4 1.6-2.4 MG/DL Total Bilirubin 0.3 0.1-1.0 MG/DL Aspartate Amino Transf (AST/SGOT) 17 5-34 U/L Alanine Aminotransferase (ALT/SGPT) 12 0-55 U/L Alkaline Phosphatase 76 40-136 U/L Myoglobin 26.4 10.0-92.0 NG/ML Troponin I < 0.028 <0.028 NG/ML Total Protein 7.3 6.4-8.2 GM/DL Albumin 4.0 3.2-4.5 GM/DL Lipase 15 8-78 U/L Serum Test, Qualitative NEGATIVE NEGATIVE ECG Impression ECG Comment Sinus rhythm with profound anterolateral ST elevation consistent with anterolateral injury. Diagnosis/Problems Diagnosis/Problems (1) ST elevation myocardial infarction (STEMI) of anterior wall Assessment & Plan: She underwent emergent cardiac catheterization that showed a probable thrombotic occlusion of a very large septal clinic manager, the distal left anterior descending coronary artery in the very distal aspect of a small diagonal branch. The septal branch and distal left anterior descending coronary artery were both treated with balloon angioplasty. No stents were placed. U nclear whether or not she had some embolic event or potentially spontaneous coronary dissection. She was given ticagrelor in the cardiac catheterization laboratory and aspirin in the emergency room. I will start her on intensive dose statin medication as well as beta-gauri. I will obtain an echocardiogram later today to assess her left ventricular function. Her urine toxicology screen is pending. She also needs to quit smoking. (2) Cigarette smoker Assessment & Plan: Cigarette smoking cessation was strongly encouraged. We can give her a nicotine patch if needed. (3) Overweight Assessment & Plan: She needs work on weight loss. (4) Gastroenteritis Assessment & Plan: She was apparently taking some antibiotics for an ill- defined gastroenteritis. I will consult internal medicine for management of noncardiac medical issues. (5) Dental abscess Assessment & Plan: As above, I will consult the hospitalist. DONAL MARCOS JR, MD Dec 29, 2020 07:38
[2020-12-29 07:47] LABS: ANISOCYTOSIS SLIGHT; BAND NEUTROPHILS 0 %; BASOPHILS % (MANUAL) 0 %; EOSINOPHILS % (MANUAL) 2 %; LYMPHOCYTES % (MANUAL) 41 %; MONOCYTES % (MANUAL) 8 %; NEUTROPHILS % (MANUAL) 49 %
[2020-12-29 07:59] LABS: LIPASE 15 U/L (8-78)
[2020-12-29] MEDS ORDERED: PATIENT MAY USE OWN MEDS, ALL PO SCH (09:00)
[2020-12-29] MEDS ORDERED: ACETAMINOPHEN 325 MG TABLET PO PRN (09:00)
[2020-12-29] MEDS ORDERED: NS IV 1000 ML 1,000 ML IV SCH (09:00)
[2020-12-29] MEDS: TICAGRELOR 90 MG TABLET (BRILINTA) PO SCH ×2 (10:15→20:40)
--- NOTE | 2020-12-29 12:13 | Tele-ICU Progress Note ---
Progress Note Video assessment done , Hemodynamically stable Available charting reviewed, discussed with RN STEMI - as per cards replace K NO TELE-ICU CONSULT REQUESTED CONTINUE TO MONITOR PER USUAL TELE-ICU PROTOCOL Plans as delineated by bedside physicians / consultants Focused Exam Height, Weight, BMI Height: 5'8.00" Weight: 180lbs. 0oz. 81.253647vs; 28.44 BMI Method:Stated CLAYTON KEMP MD Dec 29, 2020 12:13
[2020-12-29] MEDS ORDERED: KCL 20 MEQ TAB (K-DUR) PO ONE (12:15)
[2020-12-29] MEDS: ROSUVASTATIN 20 MG (CRESTOR) TABLET PO SCH ×2 (12:22→20:40)
[2020-12-29] MEDS ORDERED: ONDANSETRON 4 MG/2 ML (SDV) Z0FRAN ONE (15:11)
[2020-12-29] MEDS ORDERED: lisINopril 5 MG (PRINIVIL) TABLET PO NR (15:15)
[2020-12-29] MEDS: ENOXAPARIN 40 MG/0.4 ML (LOVENOX) SYR SC SCH (15:18)
[2020-12-29] MEDS: ASPIRIN E.C. 81 MG (ECOTRIN) TAB PO SCH (15:18)
[2020-12-29] MEDS ORDERED: ONDANSETRON 4 MG/2 ML (SDV) Z0FRAN IVP PRN (15:30)
--- NOTE | 2020-12-29 15:57 | Cardiac Cath Report ---
CARDIAC CATHETERIZATION DATE OF PROCEDURE: 12/29/2020 INDICATION: Anterior STEMI. HISTORY: The patient is a 35 year old female with no previously known history of coronary artery disease. She was in her usual state health until this morning when she got up to urinate and collapsed on the floor. When she woke up she called to her significant other. She was having chest discomfort at that time. She was brought to the emergency room for further evaluation. Her electrocardiogram showed anterolateral ST elevation and a code STEMI was called. Therefore, we elected to proceed with emergency cardiac catheterization. There was some difficulty in obtaining access and this caused a patient related delay to first device activation. PROCEDURES PERFORMED: 1. Left heart catheterization with hemodynamic measurements. 2. Diagnostic [place] coronary angiography. 3. Percutaneous coronary intervention to distal left anterior descending artery with aspiration thrombectomy and angioplasty. No stent was deployed. PROCEDURE DESCRIPTION: After informed consent and in the fasting state, left heart catheterization was performed through the right radial artery utilizing a 6 [place] system by percutaneous approach. A 5 [place] JR4 catheter was utilized to interrogate the right coronary artery. A 6 [place] CLS 3 guide catheter was utilized to interrogate the left coronary artery and for the coronary intervention. All catheters were exchanged over a guidewire. RESULTS: HEMODYNAMICS: The aortic pressure was 165/108 mmHg. The left ventricular pressure was 178/0 mmHg with a left ventricular end-diastolic of 28 mmHg. There was no significant pressure gradient upon pullback across aortic valve. CORONARY ANGIOGRAPHY: Left main coronary artery: Free of significant disease. Left anterior descending coronary artery: There was a total thrombotic occlusion of the distal left anterior descending artery with ELISA 0 flow. There was a large first septal report developer which was totally occluded proximally with eviden ce of thrombus and ELISA 0 flow. There also appeared to be a small diagonal branch with some distal dye staining consistent with embolism. Left circumflex coronary artery: Small but free of significant disease. Right coronary artery: Dominant and free of significant disease. PERCUTANEOUS CORONARY INTERVENTION OF LEFT ANTERIOR DESCENDING CORONARY ARTERY: Percutaneous coronary intervention was carried out on the distal left anterior descending coronary artery through a 6 [place] CLS 3 guide catheter. I first placed a [place]isper medium support guidewire down into the first septal report developer because I was not sure if this was the continuation of the left anterior descending coronary artery. I subsequently performed coronary angioplasty with a 2 x 15 mm Trek balloon at a pressure of 6 merrick. Flow was then restored. At that point, it became apparent that this first lesion was a septal report developer and not the body of the left anterior descending artery. I then placed a second Whisper medium support guidewire into the distal left anterior descending artery and performed angioplasty with the same 2 x 15 mm balloon at a pressure of 6 merrick for several inflations. Flow was restored but still very sluggish. Intracoronary adenosine was administered. I subsequently performed aspiration thrombectomy with an [place] aspiration catheter. An additional dose of intracoronary adenosine was administered. Follow-up with angiogram at that point showed 0% residual stenosis with ELISA-3 flow. There was no obvious evidence of a dissection. Because of the small size of the vessel in this distal location, I elected not to place a stent. IMPRESSION: 1. Systolic hypertension with markedly elevated left ventricular end-diastolic pressure. 2. Total thrombotic occlusion of the first septal report developer, distal left anterior descending coronary artery and most likely a small diagonal branch. The remainder of the coronary arteries were free of significant disease. 3. Status post balloon angioplasty to the first septal report developer with 0% re sidual stenosis and ELISA-3 flow. Normally, I would not intervene on a septal report developer but it was not clear whether or not this occluded vessel was the distal continuation of the left anterior descending coronary artery versus a branch. 4. Status post balloon angioplasty and aspiration thrombectomy to the distal left anterior descending artery with 0% residual stenosis and ELISA-3 flow. No stent was placed Certain portions of this document may have been dictated utilizing voice recognition technology. Inherent to this technology, typographical and grammatical errors may exist. As much as I am diligent to identify and correct these mistakes, some errors may remain in the document. DONAL AGUILAR JR, MD Dec 29, 2020 15:57
[2020-12-29] MEDS ORDERED: KCL 20 MEQ TAB (K-DUR) PO NR (18:45)
[2020-12-29] MEDS ORDERED: LORazepam 0.5 MG (ATIVAN) TABLET PO PRN (20:30)
[2020-12-29 20:31] LABS: BILIRUBIN,URINE NEGATIVE (NEGATIVE); CLARITY,URINE CLOUDY; COLOR,URINE RED; GLUCOSE, URINE (UA) NEGATIVE (NEGATIVE); KETONES,URINE TRACE (NEGATIVE); LEUKOCYTE ESTERASE ,URINE 1+ (NEGATIVE); NITRITE,URINE NEGATIVE (NEGATIVE); PROTEIN,URINE 1+ (NEGATIVE)
[2020-12-29 20:39] LABS: RBC,URINE >100 /HPF
[2020-12-29 20:40] LABS: BACTERIA,URINE TRACE /HPF
[2020-12-29 20:46] LABS: AMPHETAMINE SCREEN, URINE NEGATIVE (NEGATIVE); BARBITURATE SCREEN URINE NEGATIVE (NEGATIVE); BENZODIAZEPINES SCREEN URINE NEGATIVE (NEGATIVE); CANNABINOID SCREEN, URINE POSITIVE (NEGATIVE); COCAINE SCREEN URINE NEGATIVE (NEGATIVE); METHADONE STAT NEGATIVE (NEGATIVE); METHAMPHETAMINE SCREEN URINE S NEGATIVE (NEGATIVE); OPIATE SCREEN URINE NEGATIVE (NEGATIVE); OXYCODONE STAT NEGATIVE (NEGATIVE); PROPOXYPHENE STAT NEGATIVE (NEGATIVE); TRICYCLIC ANTIDEPRESSANTS SCRE NEGATIVE (NEGATIVE)
[2020-12-30 03:35] LABS: HEMATOCRIT 40 % (35-52); HEMOGLOBIN 12.6 g/dL (11.5-16.0); MEAN CORPUSCULAR HEMOGLOBIN 27 pg (25-34); MEAN CORPUSCULAR HGB CONC 31 g/dL (32-36); MEAN CORPUSCULAR VOLUME 86 fL (80-99); MEAN PLATELET VOLUME 10.7 fL (9.0-12.2); PLATELET COUNT 292 10^3/uL (130-400); WHITE BLOOD COUNT 16.8 10^3/uL (4.3-11.0)
[2020-12-30 03:49] LABS: POTASSIUM 3.8 MMOL/L (3.6-5.0)
[2020-12-30 03:50] LABS: CALCIUM 8.9 MG/DL (8.5-10.1)
[2020-12-30 03:55] LABS: CREATININE SERUM 0.69 MG/DL (0.60-1.30)
[2020-12-30] MEDS: TICAGRELOR 90 MG TABLET (BRILINTA) PO SCH ×2 (08:19→20:22)
[2020-12-30] MEDS: ASPIRIN E.C. 81 MG (ECOTRIN) TAB PO SCH (08:20)
[2020-12-30] MEDS: lisINopril 5 MG (PRINIVIL) TABLET PO SCH (08:20)
--- NOTE | 2020-12-30 09:29 | Consultation ---
HPI History of Present Illness: About 3 weeks ago had tooth infection and was put on clindamycin, got bad abdominal pain a few days later and was sent to ER and told she had bacterial infection in her stomach and given Bactrim. She couldn't keep down Bactrim and clinda, for the next week she was unable to eat and vomiting a lot. She also had constipation with the medications and she used miralax and stool softener. The day after she finished the antibiotics she cleared her bowels and had chest pain and then passed out coming from the bathroom which led to her coming in and she was found to have STEMI. Source: patient Date seen by provider: Dec 30, 2020 Time Seen by Provider: 09:26 Attending Physician Talha Marcos Jr, MD [facility] Consult Date of Admission Dec 29, 2020 at 09:26 Home Medications Home Medications Reviewed patient Home Medication Reconciliation performed by pharmacy medication reconciliations cooling tower technician and/or nursing. Patients Allergies have been reviewed. Allergies Coded Allergies: Penicillins (Verified Allergy, Unknown, 10/31/07) [id number]-Grgukt Hx Patient Social History Smoking Status: Current Everyday Smoker 2nd Hand Smoke Exposure: Yes Recent Hopitalizations: No Alcohol Use?: No (history of heavy alcohol use, last drink 2009) Tobacco type used: Cigarettes Have you traveled recently?: No Immunizations Up To Date Tetanus Booster (TDap): Less than 5yrs Past Medical History PMHx: Anxiety SurgHx: Thumb x 2 Family Medical History Significant Family History: Cancer (father, lung cancer) Review of Systems ([facility]) Constitutional: No fever EENTM: No nose congestion, No throat pain Respiratory: No short of breath Cardiovascular: chest pain (tenderness) Gastrointestinal: No abdominal pain, No constipation, No diarrhea, No nausea, No vomiting Genitourinary: No dysuria Musculoskeletal: No joint pain Skin: No rash Reviewed Test Results Reviewed Test Results Lab Laboratory Tests Test 12/29/20 07:06 12/29/20 07:08 12/29/20 14:07 12/29/20 20:23 Range/Units Syphilis Serology Non-Reactive Non-Reactive White Blood Count 21.6 H 4.3-11.0 10^3/uL Red Blood Count 5.07 3.80-5.11 10^6/uL Hemoglobin 13.8 11.5-16.0 g/dL Hematocrit 43 35-52 % Mean Corpuscular Volume 85 80-99 fL Mean Corpuscular Hemoglobin 27 25-34 pg Mean Corpuscular Hemoglobin Concent 32 32-36 g/dL Red Cell Distribution Width 16.5 H 10.0-14.5 % Platelet Count 403 H 130-400 10^3/uL Mean Platelet Volume 10.7 9.0-12.2 fL Immature Granulocyte % (Auto) 1 % Neutrophils (%) (Auto) 55 42-75 % Lymphocytes (%) (Auto) 37 12-44 % Monocytes (%) (Auto) 6 0-12 % Eosinophils (%) (Auto) 1 0-10 % Basophils (%) (Auto) 1 0-10 % Neutrophils # (Auto) 11.8 H 1.8-7.8 10^3/uL Lymphocytes # (Auto) 8.0 H 1.0-4.0 10^3/uL Monocytes # (Auto) 1.4 H 0.0-1.0 10^3/uL Eosinophils # (Auto) 0.2 0.0-0.3 10^3/uL Basophils # (Auto) 0.1 0.0-0.1 10^3/uL Immature Granulocyte # (Auto) 0.1 0.0-0.1 10^3/uL Neutrophils % (Manual) 49 % Lymphocytes % (Manual) 41 % Monocytes % (Manual) 8 % Eosinophils % (Manual) 2 % Basophils % (Manual) 0 % Band Neutrophils 0 % Anisocytosis SLIGHT Prothrombin Time 12.6 12.2-14.7 SEC INR Comment 0.9 0.8-1.4 Activated Partial Thromboplast Time 25 24-35 SEC Sodium Level 137 135-145 MMOL/L Potassium Level 3.3 L 3.6-5.0 MMOL/L Chloride Level 103 98-107 MMOL/L Carbon Dioxide Level 21 21-32 MMOL/L Anion Gap 13 5-14 MMOL/L Blood Urea Nitrogen 9 7-18 MG/DL Creatinine 0.84 0.60-1.30 MG/DL Estimat Glomerular Filtration Rate 77 BUN/Creatinine Ratio 11 Glucose Level 147 H 70-105 MG/DL Mean Blood Glucose 105 <=126 mg/dL Hemoglobin A1c 5.3 4.0-5.6 % Calcium Level 9.5 8.5-10.1 MG/DL Corrected Calcium 9.5 8.5-10.1 MG/DL Magnesium Level 2.4 1.6-2.4 MG/DL Total Bilirubin 0.3 0.1-1.0 MG/DL Aspartate Amino Transf (AST/SGOT) 17 5-34 U/L Alanine Aminotransferase (ALT/SGPT) 12 0-55 U/L Alkaline Phosphatase 76 40-136 U/L Myoglobin 26.4 10.0-92.0 NG/ML Troponin I < 0.028 26.222 *H <0.028 NG/ML Total Protein 7.3 6.4-8.2 GM/DL Albumin 4.0 3.2-4.5 GM/DL Lipase 15 8-78 U/L Serum Test, Qualitative NEGATIVE NEGATIVE Urine Color RED H Urine Clarity CLOUDY Urine pH 7.0 5-9 Urine Specific [place] 1.010 L 1.016-1.022 Urine Protein 1+ H NEGATIVE Urine Glucose (UA) NEGATIVE NEGATIVE Urine Ketones TRACE H NEGATIVE Urine Nitrite NEGATIVE NEGATIVE Urine Bilirubin NEGATIVE NEGATIVE Urine Urobilinogen 0.2 < = 1.0 MG/DL Urine Leukocyte Esterase 1+ H NEGATIVE Urine RBC (Auto) 3+ H NEGATIVE Urine RBC >100 H /HPF Urine WBC 2-5 /HPF Urine Squamous Epithelial Cells 2-5 /HPF Urine Crystals NONE /LPF Urine Bacteria TRACE /HPF Urine Casts NONE /LPF Urine Mucus NEGATIVE /LPF Urine Culture Indicated NO Urine Opiates Screen NEGATIVE NEGATIVE Urine Oxycodone Screen NEGATIVE NEGATIVE Urine Methadone Screen NEGATIVE NEGATIVE Urine Propoxyphene Screen NEGATIVE NEGATIVE Urine Barbiturates Screen NEGATIVE NEGATIVE Ur Tricyclic Antidepressants Screen NEGATIVE NEGATIVE Urine Phencyclidine Screen NEGATIVE NEGATIVE Urine Amphetamines Screen NEGATIVE NEGATIVE Urine Methamphetamines Screen NEGATIVE NEGATIVE Urine Benzodiazepines Screen NEGATIVE NEGATIVE Urine Cocaine Screen NEGATIVE NEGATIVE Urine Cannabinoids Screen POSITIVE H NEGATIVE Test 12/29/20 22:07 12/30/20 03:20 Range/Units Troponin I 37.159 *H <0.028 NG/ML White Blood Count 16.8 H 4.3-11.0 10^3/uL Red Blood Count 4.69 3.80-5.11 10^6/uL Hemoglobin 12.6 11.5-16.0 g/dL Hematocrit 40 35-52 % Mean Corpuscular Volume 86 80-99 fL Mean Corpuscular Hemoglobin 27 25-34 pg Mean Corpuscular Hemoglobin Concent 31 L 32-36 g/dL Red Cell Distribution Width 16.6 H 10.0-14.5 % Platelet Count 292 130-400 10^3/uL Mean Platelet Volume 10.7 9.0-12.2 fL Sodium Level 136 135-145 MMOL/L Potassium Level 3.8 3.6-5.0 MMOL/L Chloride Level 104 98-107 MMOL/L Carbon Dioxide Level 19 L 21-32 MMOL/L Anion Gap 13 5-14 MMOL/L Blood Urea Nitrogen 7 7-18 MG/DL Creatinine 0.69 0.60-1.30 MG/DL Estimat Glomerular Filtration Rate 97 BUN/Creatinine Ratio 10 Glucose Level 112 H 70-105 MG/DL Calcium Level 8.9 8.5-10.1 MG/DL Triglycerides Level 156 H <150 MG/DL Cholesterol Level 191 < 200 MG/DL LDL Cholesterol Direct 143 H 1-129 MG/DL VLDL Cholesterol 31 5-40 MG/DL HDL Cholesterol 36 L 40-60 MG/DL Physical Exam-(CHC) Physical Exam Vital Signs VS - Last 72 Hours, by Label 12/29/20 12/29/20 12/29/20 12/29/20 07:05 07:05 07:10 07:31 Temp 36.4 36.4 Pulse 65 71 Resp 20 20 B/P (MAP) 175/112 (133) 157/118 Pulse Ox 99 99 98 O2 Delivery Room Air Room Air Room Air Room Air FiO2 99 12/29/20 12/29/20 12/29/20 12/29/20 09:00 09:05 09:11 09:15 Pulse 63 64 63 Resp 6 B/P (MAP) 121/95 (104) 125/100 (108) Pulse Ox 99 96 99 O2 Delivery OxyMask Room Air OxyMask 12/29/20 12/29/20 12/29/20 12/29/20 09:30 09:45 10:00 10:15 Pulse 68 58 63 70 Resp 4 7 B/P (MAP) 127/92 (104) 122/92 (102) 123/94 (104) 130/97 (108) Pulse Ox 95 99 99 99 O2 Delivery OxyMask Room Air Room Air Room Air 12/29/20 12/29/20 12/29/20 12/29/20 11:00 11:42 12:00 12:00 Temp 36.3 Pulse 65 77 B/P (MAP) 127/98 (108) 129/94 (106) Pulse Ox 98 96 98 O2 Delivery Room Air Room Air Room Air 12/29/20 12/29/20 12/29/20 12/29/20 12:13 13:00 14:00 15:00 Pulse 73 63 100 81 Resp 13 19 25 B/P (MAP) 140/109 (119) 140/110 (120) 145/110 (122) Pulse Ox 99 98 98 O2 Delivery Room Air Room Air Room Air 12/29/20 12/29/20 12/29/20 12/29/20 16:00 16:00 16:00 17:00 Temp 36.4 Pulse 81 71 Resp 16 14 B/P (MAP) 154/101 (118) 145/112 (123) Pulse Ox 96 97 97 O2 Delivery Room Air Room Air Room Air 12/29/20 12/29/20 12/29/20 12/29/20 18:00 19:00 19:45 20:00 Pulse 71 98 89 Resp 18 15 B/P (MAP) 150/112 (125) 159/124 (136) Pulse Ox 95 96 100 O2 Delivery Room Air Room Air Room Air 12/29/20 12/29/20 12/29/20 12/29/20 20:00 20:00 20:30 21:00 Temp 37.5 Pulse 91 85 Resp 15 B/P (MAP) 138/84 (102) 124/97 (106) Pulse Ox 100 96 99 O2 Delivery Room Air Room Air Room Air 12/29/20 12/29/20 12/29/20 12/30/20 22:45 23:00 23:59 00:00 Pulse 80 106 85 Resp 22 27 10 B/P (MAP) 120/96 (104) 129/104 (112) 128/92 (104) Pulse Ox 95 94 100 97 O2 Delivery Room Air Room Air Room Air Room Air 12/30/20 12/30/20 12/30/20 12/30/20 00:00 01:00 01:03 02:00 Temp 37.2 Pulse 96 87 78 Resp 11 19 B/P (MAP) 130/98 (108) 123/98 (107) Pulse Ox 96 90 O2 Delivery Room Air Room Air 12/30/20 12/30/20 12/30/20 12/30/20 03:00 04:00 04:00 04:00 Temp 36.8 Pulse 92 97 Resp 16 12 B/P (MAP) 143/113 (124) 113/91 (99) Pulse Ox 97 99 93 O2 Delivery Room Air Room Air Nasal Cannula O2 Flow Rate 2.00 12/30/20 12/30/20 12/30/20 12/30/20 05:00 06:00 07:00 07:00 Pulse 93 94 98 98 Resp 17 B/P (MAP) 133/103 (112) 122/92 (103) 130/101 (111) Pulse Ox 97 95 95 O2 Delivery Room Air Room Air Room Air 12/30/20 12/30/20 12/30/20 12/30/20 08:00 08:00 08:22 09:00 Temp 36.3 Pulse 98 105 Resp 22 16 B/P (MAP) 118/88 (98) 103/86 (92) Pulse Ox 93 93 97 O2 Delivery Room Air Room Air Room Air 12/30/20 12/30/20 12/30/20 12/30/20 10:00 11:00 11:59 12:00 Temp 37.0 Pulse 88 74 79 Resp 15 15 16 B/P (MAP) 98/77 (84) 109/83 (92) 111/95 (100) Pulse Ox 97 97 97 O2 Delivery Room Air Room Air Room Air 12/30/20 13:00 Pulse 83 Capillary Refill : Less Than 3 Seconds General Appearance: WD/WN HEENT: other (poor dentition) Cardiovascular: regular rate, rhythm, no murmur Gastrointestinal: normal bowel sounds Extremities: no pedal edema Neurologic/Psychiatric: alert, normal mood/affect Skin: normal color, warm/dry Assessment/Plan Assessment/Plan (1) STEMI (ST elevation myocardial infarction) Status: Acute Assessment & Plan: s/p cath, management per Cardiology Qualifiers: Qualified Codes: I21.02 - ST elevation (STEMI) myocardial infarction involving left anterior descending coronary artery (2) CHF (congestive heart failure) Status: Acute Qualifiers: Qualified Codes: I50.21 - Acute systolic (congestive) heart failure (3) Anxiety Status: Chronic Assessment & Plan: Clonazepam as needed while inpatient. Clinical Quality Measures AMI/AHF: ASA po Prior to arrival: GISELLE Scott MD Dec 30, 2020 09:29
[2020-12-30] MEDS ORDERED: SPIRONOLACTONE 25 MG (ALDACTONE) TAB PO ONE ×2 (10:00→13:30)
--- NOTE | 2020-12-30 10:02 | Cardiology Progress Note ---
Progress Note-Cardiology Events since last exam Date Seen by Provider: Dec 30, 2020 Time Seen by Provider: 10:01 Events since last exam She still has some vague chest tightness. She denies dyspnea, palpitations, syncope, or ankle edema. She is very anxious about being outside her house. She does not carry a diagnosis of agoraphobia but her family states that she might have this condition. Certain portions of this document may have been dictated utilizing voice recognition technology. Inherent to this technology, typographical and grammatical errors may exist. As much as I am diligent to identify and correct these mistakes, some errors may remain in the document. Vitals Last set of Vitals Signs Vital Signs 12/29/20 12/30/20 12/30/20 07:05 11:59 12:00 Temp 37.0 Pulse 79 Resp 16 B/P (MAP) 111/95 (100) Pulse Ox 97 O2 Delivery Room Air FiO2 99 Labs Labs Laboratory Tests 12/30/20 03:20 Exam Vital Signs Vital Signs Date Time Temp Pulse Resp B/P (MAP) Pulse Ox O2 Delivery O2 Flow Rate FiO2 12/30/20 12:00 79 16 111/95 (100) 97 Room Air 12/30/20 11:59 37.0 12/30/20 04:00 2.00 12/29/20 07:05 99 Physical Exam General: Alert. No acute distress. Eye: No xanthelasma. HENT: Normocephalic. Neck: Jugular venous pressure does not appear elevated. Respiratory: Lungs are clear to auscultation. Respirations are non-labored. Breath sounds are equal. Symmetrical chest wall expansion. Cardiovascular: Normal rate. Regular rhythm. No murmur. No gallop. No edema. Gastrointestinal: Soft. Normal bowel sounds. Skin: Warm. Dry. Neurologic: Alert and oriented to person, place, time. Cranial nerves 3-11 grossly intact. Psychiatric: Cooperative. She is anxious. Labs Laboratory Tests Test 12/29/20 14:07 12/29/20 20:23 12/29/20 22:07 12/30/20 03:20 Range/Units Troponin I 26.222 *H 37.159 *H <0.028 NG/ML Urine Color RED H Urine Clarity CLOUDY Urine pH 7.0 5-9 Urine Specific [place] 1.010 L 1.016-1.022 Urine Protein 1+ H NEGATIVE Urine Glucose (UA) NEGATIVE NEGATIVE Urine Ketones TRACE H NEGATIVE Urine Nitrite NEGATIVE NEGATIVE Urine Bilirubin NEGATIVE NEGATIVE Urine Urobilinogen 0.2 < = 1.0 MG/DL Urine Leukocyte Esterase 1+ H NEGATIVE Urine RBC (Auto) 3+ H NEGATIVE Urine RBC >100 H /HPF Urine WBC 2-5 /HPF Urine Squamous Epithelial Cells 2-5 /HPF Urine Crystals NONE /LPF Urine Bacteria TRACE /HPF Urine Casts NONE /LPF Urine Mucus NEGATIVE /LPF Urine Culture Indicated NO Urine Opiates Screen NEGATIVE NEGATIVE Urine Oxycodone Screen NEGATIVE NEGATIVE Urine Methadone Screen NEGATIVE NEGATIVE Urine Propoxyphene Screen NEGATIVE NEGATIVE Urine Barbiturates Screen NEGATIVE NEGATIVE Ur Tricyclic Antidepressants Screen NEGATIVE NEGATIVE Urine Phencyclidine Screen NEGATIVE NEGATIVE Urine Amphetamines Screen NEGATIVE NEGATIVE Urine Methamphetamines Screen NEGATIVE NEGATIVE Urine Benzodiazepines Screen NEGATIVE NEGATIVE Urine Cocaine Screen NEGATIVE NEGATIVE Urine Cannabinoids Screen POSITIVE H NEGATIVE White Blood Count 16.8 H 4.3-11.0 10^3/uL Red Blood Count 4.69 3.80-5.11 10^6/uL Hemoglobin 12.6 11.5-16.0 g/dL Hematocrit 40 35-52 % Mean Corpuscular Volume 86 80-99 fL Mean Corpuscular Hemoglobin 27 25-34 pg Mean Corpuscular Hemoglobin Concent 31 L 32-36 g/dL Red Cell Distribution Width 16.6 H 10.0-14.5 % Platelet Count 292 130-400 10^3/uL Mean Platelet Volume 10.7 9.0-12.2 fL Sodium Level 136 135-145 MMOL/L Potassium Level 3.8 3.6-5.0 MMOL/L Chloride Level 104 98-107 MMOL/L Carbon Dioxide Level 19 L 21-32 MMOL/L Anion Gap 13 5-14 MMOL/L Blood Urea Nitrogen 7 7-18 MG/DL Creatinine 0.69 0.60-1.30 MG/DL Estimat Glomerular Filtration Rate 97 BUN/Creatinine Ratio 10 Glucose Level 112 H 70-105 MG/DL Calcium Level 8.9 8.5-10.1 MG/DL Triglycerides Level 156 H <150 MG/DL Cholesterol Level 191 < 200 MG/DL LDL Cholesterol Direct 143 H 1-129 MG/DL VLDL Cholesterol 31 5-40 MG/DL HDL Cholesterol 36 L 40-60 MG/DL Diagnosis/Problems Diagnosis/Problems (1) ST elevation myocardial infarction (STEMI) of anterior wall Assessment & Plan: She underwent emergent cardiac catheterization that showed a probable thrombotic occlusion of a very large septal eyelet row marker, the distal left anterior descending coronary artery in the very distal aspect of a small diagonal branch. The septal branch and distal left anterior descending coronary artery were both treated with balloon angioplasty. No stents were placed. Unclear whether or not she had some embolic event or potentially spontaneous coronary dissection. She also was found to have severe left ventricular systolic dysfunction. The degree of systolic dysfunction is out of proportion to the coronary territory involved in the acute myocardial infarction. As such, I suspect she may have had an underlying undiagnosed cardiomyopathy and on top of this developed an acute myocardial infarction. We will continue guideline directed medical therapy with aspirin, ticagrelor, beta-gauri, and intensive dose statin medication. Given the acute myocardial infarction accompanied by an ejection less than 35%, she is high risk of sudden cardiac . As such, I wi ll order a LifeVest which she will need at the time of discharge. (2) Cardiomyopathy Assessment & Plan: She has severe left ventricular systolic dysfunction on her echocardiogram. Her left ventricular cavity size was normal which is suggestive of this possibly being a recent finding. However, as outlined above, the amount of coronary territory involved in the acute myocardial infarction is much smaller than the amount of left jugular dysfunction which raises the possibility of a pre-existing cardiomyopathy. I will place her on the usual guideline directed medical therapy with carvedilol, lisinopril, and spironolactone. (3) Primary hypertension Assessment & Plan: She has been hypertensive here in the hospital. This also seems to be a new diagnosis for the patient. This should improve as we titrate the medication for the cardiomyopathy. (4) Mixed hyperlipidemia Assessment & Plan: Continue intensive dose statin in light of the acute myocardial infarction. (5) Acute anxiety Assessment & Plan: I will start her on clonazepam for while she is here in the hospital. I will plan to discontinue this at the time of discharge. She will need to find a primary care provider for long-term management of her anxiety. (6) Cigarette smoker Assessment & Plan: Cigarette smoking cessation was strongly encouraged. We can give her a nicotine patch if needed. (7) Dental abscess Assessment & Plan: I have asked the hospitalist to evaluate her in this regard. (8) Overweight Assessment & Plan: She needs work on weight loss. DONAL AGUILAR JR, MD Dec 30, 2020 10:02
[2020-12-30] MEDS ORDERED: CALC300T4 PO (10:07)
[2020-12-30] MEDS ORDERED: IBUP-30 PO (10:07)
[2020-12-30] MEDS ORDERED: MULT-1136 PO (10:07)
[2020-12-30] MEDS ORDERED: CLIN300C12 PO (10:07)
[2020-12-30] MEDS ORDERED: L.AC1CAP6 PO (10:07)
[2020-12-30] MEDS: clonazePAM 0.5 MG (KlonoPIN) TAB PO SCH ×2 (13:28→20:22)
[2020-12-30] MEDS ORDERED: clonazePAM 0.5 MG (KlonoPIN) TAB PO ONE (13:30)
--- NOTE | 2020-12-30 15:10 | Diagnostic Imaging Report ---
INDICATION: Myocardial infarct 2 days ago. TIME OF EXAM: 2:48 p.m. Correlation is made with prior chest from 05/10/2019. Heart size is normal. Lungs appear to be clear. No infiltrates are seen. There is no effusion or pneumothorax. IMPRESSION: No acute abnormalities detected. Dictated by: Dictated on workstation # [id number]
[2020-12-30] MEDS: ENOXAPARIN 40 MG/0.4 ML (LOVENOX) SYR SC SCH (18:04)
[2020-12-30] MEDS: ROSUVASTATIN 20 MG (CRESTOR) TABLET PO SCH (20:22)
[2020-12-30] MEDS ORDERED: NS (IVPB) 250 ML IV ONE (22:00)
[2020-12-30] MEDS ORDERED: NORMAL SALINE 250 ML ONE (22:01)
[2020-12-30] MEDS ORDERED: NS IV 1000 ML 1,000 ML ONE (22:30)
[2020-12-30] MEDS ORDERED: NS IV 1000 ML 1,000 ML IV SCH (22:45)
[2020-12-30] MEDS ORDERED: NOREPINEPHRINE 8 MG/250 ML 250 ML IV ONE (22:57)
[2020-12-30] MEDS: NOREPINEPHRINE 8 MG/250 ML 250 ML IV SCH (23:09)
[2020-12-31 03:18] LABS: POTASSIUM 3.6 MMOL/L (3.6-5.0)
[2020-12-31 03:19] LABS: CALCIUM 8.5 MG/DL (8.5-10.1)
[2020-12-31 03:23] LABS: CREATININE SERUM 0.74 MG/DL (0.60-1.30); PHOSPHORUS 3.2 MG/DL (2.3-4.7)
[2020-12-31 03:25] LABS: MAGNESIUM 2.3 MG/DL (1.6-2.4)
[2020-12-31] MEDS: POTASSIUM CL 10MEQ/50ML IVPB 50 ML IV SCH (03:36)
[2020-12-31] MEDS: MAGNESIUM 1 GM/100 ML IVPB 100 ML IV SCH (03:37)
[2020-12-31 03:44] LABS: BASOPHILS # (AUTO) 0.1 10^3/uL (0.0-0.1); BASOPHILS % (AUTO) 0 % (0-10); EOSINOPHILS # (AUTO) 0.2 10^3/uL (0.0-0.3); EOSINOPHILS % (AUTO) 1 % (0-10); HEMATOCRIT 39 % (35-52); LYMPHOCYTES # (AUTO) 5.1 10^3/uL (1.0-4.0); LYMPHOCYTES % (AUTO) 39 % (12-44); MEAN CORPUSCULAR HEMOGLOBIN 27 pg (25-34); MEAN CORPUSCULAR HGB CONC 31 g/dL (32-36); MEAN CORPUSCULAR VOLUME 88 fL (80-99); MEAN PLATELET VOLUME 11.5 fL (9.0-12.2); MONOCYTES # (AUTO) 1.1 10^3/uL (0.0-1.0); MONOCYTES % (AUTO) 8 % (0-12); NEUTROPHILS # (AUTO) 6.6 10^3/uL (1.8-7.8); NEUTROPHILS % (AUTO) 50 % (42-75); PLATELET COUNT 348 10^3/uL (130-400); WHITE BLOOD COUNT 13.1 10^3/uL (4.3-11.0)
[2020-12-31] MEDS: KCL 20 MEQ TAB (K-DUR) PO SCH (05:07)
[2020-12-31] MEDS: lisINopril 5 MG (PRINIVIL) TABLET PO SCH (07:28)
[2020-12-31] MEDS: clonazePAM 0.5 MG (KlonoPIN) TAB PO SCH ×2 (07:29→20:28)
[2020-12-31] MEDS: ASPIRIN E.C. 81 MG (ECOTRIN) TAB PO SCH (08:14)
[2020-12-31] MEDS: TICAGRELOR 90 MG TABLET (BRILINTA) PO SCH ×2 (08:14→20:28)
[2020-12-31] MEDS ORDERED: SPIRONOLACTONE 25 MG (ALDACTONE) TAB PO SCH (09:00)
--- NOTE | 2020-12-31 09:02 | Cardiology Progress Note ---
Progress Note-Cardiology Events since last exam Date Seen by Provider: Dec 31, 2020 Time Seen by Provider: 08:57 Events since last exam This morning she is feeling better. Last night she developed cardiogenic shock and I started her on norepinephrine infusion. The nurse has been able to wean this off this morning. I have all of her medication for cardiomyopathy on hold. She denies recurrent chest discomfort. She denies dyspnea, palpitations, syncope, or ankle edema. Certain portions of this document may have been dictated utilizing voice recognition technology. Inherent to this technology, typographical and grammatical errors may exist. As much as I am diligent to identify and correct these mistakes, some errors may remain in the document. Vitals Last set of Vitals Signs Vital Signs 12/29/20 12/31/20 12/31/20 07:05 06:00 08:00 Temp 36.2 Pulse 49 Resp 13 B/P (MAP) 103/74 (84) Pulse Ox 99 O2 Delivery Room Air FiO2 99 Labs Labs Laboratory Tests 12/31/20 02:50 Exam Vital Signs Vital Signs Date Time Temp Pulse Resp B/P (MAP) Pulse Ox O2 Delivery O2 Flow Rate FiO2 12/31/20 08:00 36.2 12/31/20 06:00 49 13 103/74 (84) 99 Room Air 12/30/20 04:00 2.00 12/29/20 07:05 99 Physical Exam General: Alert. No acute distress. Eye: No xanthelasma. HENT: Normocephalic except for poor dentition. Neck: Jugular venous pressure does not appear elevated. Respiratory: Lungs are clear to auscultation. Respirations are non-labored. Breath sounds are equal. Symmetrical chest wall expansion. Cardiovascular: Normal rate. Regular rhythm. No murmur. No gallop. No edema. Gastrointestinal: Soft. Normal bowel sounds. Skin: Warm. Dry. Neurologic: Alert and oriented to person, place, time. Cranial nerves 3-11 grossly intact. Psychiatric: Cooperative. Appropriate mood & affect. Labs Laboratory Tests Test 12/31/20 02:50 Range/Units White Blood Count 13.1 H 4.3-11.0 10^3/uL Red Blood Count 4.41 3.80-5.11 10^6/uL Hemoglobin 12.0 11.5-16.0 g/dL Hematocrit 39 35-52 % Mean Corpuscular Volume 88 80-99 fL Mean Corpuscular Hemoglobin 27 25-34 pg Mean Corpuscular Hemoglobin Concent 31 L 32-36 g/dL Red Cell Distribution Width 16.6 H 10.0-14.5 % Platelet Count 348 130-400 10^3/uL Mean Platelet Volume 11.5 9.0-12.2 fL Immature Granulocyte % (Auto) 1 % Neutrophils (%) (Auto) 50 42-75 % Lymphocytes (%) (Auto) 39 12-44 % Monocytes (%) (Auto) 8 0-12 % Eosinophils (%) (Auto) 1 0-10 % Basophils (%) (Auto) 0 0-10 % Neutrophils # (Auto) 6.6 1.8-7.8 10^3/uL Lymphocytes # (Auto) 5.1 H 1.0-4.0 10^3/uL Monocytes # (Auto) 1.1 H 0.0-1.0 10^3/uL Eosinophils # (Auto) 0.2 0.0-0.3 10^3/uL Basophils # (Auto) 0.1 0.0-0.1 10^3/uL Immature Granulocyte # (Auto) 0.1 0.0-0.1 10^3/uL Sodium Level 135 135-145 MMOL/L Potassium Level 3.6 3.6-5.0 MMOL/L Chloride Level 106 98-107 MMOL/L Carbon Dioxide Level 19 L 21-32 MMOL/L Anion Gap 10 5-14 MMOL/L Blood Urea Nitrogen 7 7-18 MG/DL Creatinine 0.74 0.60-1.30 MG/DL Estimat Glomerular Filtration Rate 89 BUN/Creatinine Ratio 9 Glucose Level 135 H 70-105 MG/DL Calcium Level 8.5 8.5-10.1 MG/DL Phosphorus Level 3.2 2.3-4.7 MG/DL Magnesium Level 2.3 1.6-2.4 MG/DL Diagnosis/Problems Diagnosis/Problems (1) Cardiogenic shock Assessment & Plan: Last night she developed cardiogenic shock. This did not respond to normal saline boluses. I started her on norepinephrine infusion. She is now normotensive and the norepinephrine infusion has been discontinued. I suspect the low blood pressures may have been related to the medication which was started for the cardiomyopathy. These will need to be added back very slowly to help avoid iatrogenic hypotension. In light of these events last evening, she will need to stay 1 additional night in the hospital. She could be transferred to cardiac stepdown later today if her blood pressure remains good. (2) ST elevation myocardial infarction (STEMI) of anterior wall Assessment & Plan: She underwent emergent cardiac catheterization that showed a probable thrombotic occlusion of a very large septal insurance policy clerk, the distal left anterior descending coronary artery in the very distal aspect of a small diagonal branch. The septal branch and distal left anterior descending coronary artery were both treated with balloon angioplasty. No stents were placed. Unclear whether or not she had some embolic event or potentially spontaneous coronary dissection. She also was found to have severe left ventricular systolic dysfunction. The degree of systolic dysfunction is out of proportion to the coronary territory involved in the acute myocardial infarction. As such, I suspect she may have had an underlying undiagnosed cardiomyopathy and on top of this developed an acute myocardial infarction. We will continue guideline directed medical therapy with aspirin, ticagrelor, beta-gauri, and intensive dose statin medication. Given the acute myocardial infarction accompanied by an ejection less than 35%, she is high risk of sudden cardiac . As such, I will order a LifeVest which she will need at the time of discharge. As above, beta-gauri, YAMILA inhibitor and spironolactone are currently on hold. (3) Cardiomyopathy Assessment & Plan: She has severe left ventricular systolic dysfunction on her echocardiogram. I did a follow-up echocardiogram this morning and there seems to be some slight improvement in myocardial contractility but she still has severe left ventricular systolic dysfunction. Full report to follow. Her left ventricular cavity size was normal which is suggestive of this possibly being a recent finding. However, as outlined above, the amount of coronary territory involved in the acute myocardial infarction is much smaller than the amount of left jugular dysfunction which raises the possibility of a pre-existing cardiomyopathy. As above, guideline directed medical therapy is presently on hold due to hypotension which occurred last evening. This may have been due to the medications which were new for this patient. I should note, there has not been any evidence of congestive heart failure in this patient. I will obtain a follow-up chest x-ray this morning just to be sure there is no evidence of pulmonary congestion. (4) Primary hypertension Assessment & Plan: She had been hypertensive here in the hospital. This also seems to be a new diagnosis for the patient. However, as above, she developed low blood pressures last evening. All antihypertensive/guideline directed medic al therapy for the cardiomyopathy is now on hold. (5) Mixed hyperlipidemia Assessment & Plan: Continue intensive dose statin in light of the acute myocardial infarction. (6) Acute anxiety Assessment & Plan: Continue clonazepam for while she is here in the hospital. I will plan to discontinue this at the time of discharge. She will need to find a primary care provider for long-term management of her anxiety. She may also have some degree of agoraphobia. I stressed to the patient the importance that she attend all of her follow-up appointments after discharge. (7) Cigarette smoker Assessment & Plan: Cigarette smoking cessation was strongly encouraged. We can give her a nicotine patch if needed. (8) Overweight Assessment & Plan: She needs work on weight loss. DONAL AGUILAR JR, MD Dec 31, 2020 09:02
--- NOTE | 2020-12-31 09:56 | Diagnostic Imaging Report ---
INDICATION: Post myocardial infarction. TECHNIQUE: Single view chest 9:08 AM. CORRELATION STUDY: 12/30/2020 FINDINGS: The heart size, mediastinal configuration and pulmonary vascularity are within normal limits. The lungs are clear with no consolidating infiltrate. Minimal scarring suggested left lung base. There is no significant effusion or pneumothorax. IMPRESSION: 1. Negative for acute abnormality of the chest. Dictated by: Dictated on workstation # [id number]
[2020-12-31] MEDS: NOREPINEPHRINE 8 MG/250 ML 250 ML IV SCH (13:08)
--- NOTE | 2020-12-31 15:40 | Progress Note ---
Subjective Subjective/Events-last exam Pt states she understands she has to stay due to blood pressure issues. She notes that she hasn't seen dentist in some time, was to see an oral surgeon for removal but the referral was to a place in [place] and she has too much anxiety to go that far, but she thinks it may be she has to go there due to insurance issues. Objective Exam Last Set of Vital Signs Vital Signs Date Time Temp Pulse Resp B/P (MAP) Pulse Ox O2 Delivery O2 Flow Rate FiO2 12/31/20 15:00 78 10 110/86 (94) 100 Room Air 12/31/20 11:57 36.2 12/30/20 04:00 2.00 12/29/20 07:05 99 Capillary Refill : Less Than 3 Seconds I&O Intake and Output 12/31/20 00:00 Intake Total 3150 ml Output Total 1800 ml Balance 1350 ml Intake Oral 2900 ml IV Total 250 ml Output Urine Total 1800 ml # Voids 6 General: Alert, No Acute Distress Lungs: Clear to Auscultation, Normal Air Movement Heart: Regular Rate, No Murmurs Neuro: Normal Speech Psych/Mental Status: Mood NL Results/Procedures Lab Laboratory Tests 12/31/20 02:50: White Blood Count 13.1H, Red Blood Count 4.41, Hemoglobin 12.0, Hematocrit 39, Mean Corpuscular Volume 88, Mean Corpuscular Hemoglobin 27, Mean Corpuscular Hemoglobin Concent 31L, Red Cell Distribution Width 16.6H, Platelet Count 348, Mean Platelet Volume 11.5, Immature Granulocyte % (Auto) 1, Neutrophils (%) (Auto) 50, Lymphocytes (%) (Auto) 39, Monocytes (%) (Auto) 8, Eosinophils (%) (Auto) 1, Basophils (%) (Auto) 0, Neutrophils # (Auto) 6.6, Lymphocytes # (Auto) 5.1H, Monocytes # (Auto) 1.1H, Eosinophils # (Auto) 0.2, Basophils # (Auto) 0.1, Immature Granulocyte # (Auto) 0.1, Sodium Level 135, Potassium Level 3.6, Chloride Level 106, Carbon Dioxide Level 19L, Anion Gap 10, Blood Urea Nitrogen 7, Creatinine 0.74, Estimat Glomerular Filtration Rate 89, BUN/Creatinine Ratio 9, Glucose Level 135H, Calcium Level 8.5, Phosphorus Level 3.2, Magnesium Level 2.3 Assessment/Plan Assessment/Plan (1) STEMI (ST elevation myocardial infarction) Status: Acute Assessment & Plan: s/p cath, management per Cardiology Qualifiers: Qualified Codes: I21.02 - ST elevation (STEMI) myocardial infarction involving left anterior descending coronary artery (2) Anxiety Status: Chronic Assessment & Plan: Clonazepam as needed while inpatient. Scheduled for follow up appointment at [facility] so she can start process of establishing with a primary. (3) Dental caries Status: Chronic Assessment & Plan: Severe with only roots of many teeth present, will see if there is a closer oral surgeon she can afford who we can refer to through [facility]. Clinical Quality Measures AMI/AHF: ASA po Prior to arrival: GISELLE Scott MD Dec 31, 2020 15:40
[2020-12-31] MEDS: ENOXAPARIN 40 MG/0.4 ML (LOVENOX) SYR SC SCH (18:46)
[2020-12-31] MEDS: ROSUVASTATIN 20 MG (CRESTOR) TABLET PO SCH (20:28)
[2021-01-01 04:00] LABS: BASOPHILS % (AUTO) 1 % (0-10); EOSINOPHILS # (AUTO) 0.1 10^3/uL (0.0-0.3); EOSINOPHILS % (AUTO) 2 % (0-10); HEMATOCRIT 38 % (35-52); HEMOGLOBIN 11.8 g/dL (11.5-16.0); LYMPHOCYTES # (AUTO) 3.3 10^3/uL (1.0-4.0); LYMPHOCYTES % (AUTO) 38 % (12-44); MEAN CORPUSCULAR HEMOGLOBIN 27 pg (25-34); MEAN CORPUSCULAR HGB CONC 31 g/dL (32-36); MEAN CORPUSCULAR VOLUME 87 fL (80-99); MEAN PLATELET VOLUME 11.2 fL (9.0-12.2); MONOCYTES # (AUTO) 0.7 10^3/uL (0.0-1.0); MONOCYTES % (AUTO) 8 % (0-12); NEUTROPHILS # (AUTO) 4.6 10^3/uL (1.8-7.8); NEUTROPHILS % (AUTO) 52 % (42-75); PLATELET COUNT 269 10^3/uL (130-400); WHITE BLOOD COUNT 8.7 10^3/uL (4.3-11.0)
[2021-01-01 04:07] LABS: POTASSIUM 3.7 MMOL/L (3.6-5.0)
[2021-01-01 04:08] LABS: CALCIUM 9.3 MG/DL (8.5-10.1)
[2021-01-01 04:13] LABS: CREATININE SERUM 0.72 MG/DL (0.60-1.30); PHOSPHORUS 3.6 MG/DL (2.3-4.7)
[2021-01-01 04:16] LABS: MAGNESIUM 2.1 MG/DL (1.6-2.4)
[2021-01-01] MEDS: NOREPINEPHRINE 8 MG/250 ML 250 ML IV SCH (05:00)
[2021-01-01] MEDS: KCL 20 MEQ TAB (K-DUR) PO SCH (05:00)
[2021-01-01] MEDS: MAGNESIUM 1 GM/100 ML IVPB 100 ML IV SCH (05:00)
[2021-01-01] MEDS: POTASSIUM CL 10MEQ/50ML IVPB 50 ML IV SCH (05:00)
[2021-01-01] MEDS: clonazePAM 0.5 MG (KlonoPIN) TAB PO SCH (07:52)
[2021-01-01] MEDS: ASPIRIN E.C. 81 MG (ECOTRIN) TAB PO SCH (08:01)
[2021-01-01] MEDS: TICAGRELOR 90 MG TABLET (BRILINTA) PO SCH (08:01)
[2021-01-01] MEDS ORDERED: TICA90TA PO (08:43)
[2021-01-01] MEDS ORDERED: NITR0.4T42 SL (08:43)
[2021-01-01] MEDS ORDERED: ASPI-1238 PO (08:43)
[2021-01-01] MEDS ORDERED: ROSU20TA32 PO (08:43)
--- NOTE | 2021-01-01 08:47 | Discharge Summary ---
Diagnosis/Chief Complaint Date of Admission Dec 29, 2020 at 09:26 Date of Discharge 01/01/2021 Discharge Date: Jan 01, 2021 Discharge Time: 11:00 Admission Diagnosis Admission Diagnosis Anterior ST elevation myocardial infarction. Discharge Diagnosis 1. Anterior ST elevation myocardial infarction 2. Cardiomyopathy, probably nonischemic. 3. Cardiogenic shock secondary to numbers 1 and 2, resolved. 4. Ventricular fibrillation requiring defibrillation, resolved. This was secondary to #1. 5. Primary hypertension, newly diagnosed. 6. Mixed hyperlipidemia. 7. Probable generalized anxiety disorder with agoraphobia. 8. Overweight. Reason Hospital Visit Anterior ST elevation myocardial infarction pain Discharge Summary Hospital Course Hospital Course See description under discussion. Labs Laboratory Tests 12/29/20 20:23: Urine Color REDH, Urine Specific [place] 1.010L, Urine Protein 1+H, Urine Ketones TRACEH, Urine Leukocyte Esterase 1+H, Urine RBC (Auto) 3+H, Urine RBC >100H, Urine Cannabinoids Screen POSITIVEH 12/29/20 22:07: Troponin I 37.159*H 12/30/20 03:20: White Blood Count 16.8H, Mean Corpuscular Hemoglobin Concent 31L, Red Cell Distribution Width 16.6H, Carbon Dioxide Level 19L, Glucose Level 112H, Triglycerides Level 156H, LDL Cholesterol Direct 143H, HDL Cholesterol 36L 12/31/20 02:50: White Blood Count 13.1H, Mean Corpuscular Hemoglobin Concent 31L, Red Cell Distribution Width 16.6H, Carbon Dioxide Level 19L, Glucose Level 135H, Lymphocytes # (Auto) 5.1H, Monocytes # (Auto) 1.1H 01/01/21 03:25: Mean Corpuscular Hemoglobin Concent 31L, Red Cell Distribution Width 16.4H, Carbon Dioxide Level 19L Procedures Cardiac catheterization and percutaneous coronary intervention. Discharge Physical Examination Allergies: Coded Allergies: Penicillins (Verified Allergy, Unknown, 10/31/07) Vitals & I&Os Vital Signs Date Time Temp Pulse Resp B/P (MAP) Pulse Ox O2 Delivery O2 Flow Rate FiO2 01/01/21 10:00 36.4 74 16 96/86 100 Room Air 12/30/20 04:00 2.00 12/29/20 07:05 99 General Appearance: Alert, Oriented X3, Cooperative HEENT: Atraumatic, EOMI Respiratory: Clear to Auscultation, Normal Air Movement Cardiovascular: Regular Rate, Normal S1, Normal S2, No Murmurs Abdominal: Normal Bowel Sounds, Soft, No Tenderness Extremities: No Clubbing, No Cyanosis, No Edema, Normal Pulses Skin: No Rashes, No Breakdown, No Significant Lesion Neuro: Normal Speech, Strength at 5/5 X4 Ext, Normal Tone, Cranial Nerves 3-12 NL Psych/Mental Status: Mental Status NL, Mood NL Discussion & Recommendations The patient presented with an anterior ST elevation myocardial infarction and was taken for emergent cardiac catheterization. She was found to have a thromb otic occlusion of the distal left anterior descending coronary artery and first septal manager android which were treated with balloon angioplasty without stent. During the procedure she developed ventricular fibrillation that required 1 defibrillation. The following day she underwent an echocardiogram that showed severe left ventricular systolic dysfunction out of proportion to the coronary territory supplied by the left anterior descending coronary artery. She was placed on the usual guideline directed medical therapy. She had no further ventricular arrhythmias. However, on the evening following her initial presentation, she developed profound bradycardia and cardiogenic shock. She was placed on norepinephrine infusion. By the following day, we were eventually able to wean off norepinephrine. A follow-up echocardiogram after the episode of cardiogenic shock showed ongoing severe left ventricular systolic dysfunction but with some improvement in wall motion. I was not able to restart her guideline directed medical therapy due to persistently low blood pressures. On the day of discharge she was doing well without any recurrent angina. There is a poor ejection fraction in the setting of an acute myocardial infarction, she was fitted for a LifeVest and she will be wearing this after she is discharged. I will plan to see her in the office in 2 weeks and start resuming guideline dir ected medical therapy. Over 30 minutes was spent in direct [id number] contact with the patient and her boyfriend and preparing this discharge summary. Discharge Home Medications Reviewed and agree with Discharge Medication list on patient's Discharge Instruction sheet Instructions to Patient/Family Please see electronic discharge instructions given to patient. Clinical Quality Measures End of Life/Advance Care Plan: Advance Care discuss with: patient, family member (s) Admission Status Admission Dx Anterior ST elevation myocardial infarction. Admission Status: Inpatient Order (span 2 midnights) Reason for Inpatient Admission: Anterior ST elevation myocardial infarction coupled with ventricular fibrillation and severe cardiomyopathy. AMI/AHF: Ejection Fraction %: 25 Ejection Fraction: <40 (YAMILA/ARB Indicated) D/C Inst. for HF given: Yes Reason YAMILA-I/ARB not given: Hypotension, Shock, Other (Cardiac) Reason Beta-James not given: Heart rate below 50 bpm, SBP below 90mmHg, Symptomatic Hypotension, Shock requiring IV diuretics/vasoac, Other (Bradycardia) ASA Given prior to admit: No ASA po Prior to arrival: No DVT/VTE Risk/Contraindication: VTE Addressed: Yes VTE Present on Admission: No RFS Level Per Nursing on Admit: 2=Moderate DONAL AGUILAR JR, MD Jan 01, 2021 08:47
[2021-01-01 10:00] VITALS: BP 96/86
== END 2021-01-01 09:45 | disposition home or self-care (01) | DRG 250 ==
LOC: EDUNIT# 06:55 → ER 06:58 → CATH 07:35 → ICU 09:05 → CATH 09:06 → ICU 09:26
PROVIDERS: ADMIT Internal Medicine Cardiovascular Disease; ATTEND Internal Medicine Cardiovascular Disease
PROC: 02C03ZZ Extirpation of Matter from Coronary Artery, One Artery, Percutaneous Approach (ICD-10-PCS; principal; 2020-12-29)
PROC: 02703ZZ Dilation of Coronary Artery, One Artery, Percutaneous Approach (ICD-10-PCS; 2020-12-29)
DX: I21.02 ST elevation (STEMI) myocardial infarction involving left anterior descending coronary artery (principal); R57.0 Cardiogenic shock; I49.01 Ventricular fibrillation; I50.21 Acute systolic (congestive) heart failure; I42.9 Cardiomyopathy, unspecified; I11.0 Hypertensive heart disease with heart failure; E78.2 Mixed hyperlipidemia; F41.1 Generalized anxiety disorder; E66.3 Overweight; F40.00 Agoraphobia, unspecified; F17.210 Nicotine dependence, cigarettes, uncomplicated; K52.9 Noninfective gastroenteritis and colitis, unspecified; K04.7 Periapical abscess without sinus; K02.9 Dental caries, unspecified; Z68.28 Body mass index [BMI] 28.0-28.9, adult; Z88.0 Allergy status to penicillin; Z79.899 Other long term (current) drug therapy
CPT/HCPCS: 36415; 71045; 71046; 80048; 80053; 80061; 80306; 81000; 83036; 83690; 83735; 83874; 84100; 84484; 84703; 85007; 85025; 85027; 85610; 85730; 86780; 93005; 93041; 93306; 93308; 93458

== ENCOUNTER 2021-02-20 11:28 | Outpatient (RCR) | payer OTHER ==
[~2021-02-20 11:28] MED LIST changes: +CLIN-144 PO; -CLIN300C12 PO
== END 2021-04-30 | disposition home or self-care (01) ==
LOC: CR 11:28
PROVIDERS: ATTEND Internal Medicine Cardiovascular Disease
DX: I25.2 Old myocardial infarction (principal)
CPT/HCPCS: 93798

== ENCOUNTER → 2021-02-20 | Outpatient (CLI) | payer SELFPAY ==
[~2021-02-20] MED LIST changes: +ASPI-1238 PO; +CALC300T4 PO; -CLIN150C18 PO; +CLIN150C20 PO; +CLIN300C12 PO; +IBUP-30 PO; +L.AC1CAP6 PO; +MULT-1136 PO; +NITR0.4T42 SL; +ROSU20TA32 PO; +TICA90TA PO
[2021-02-20 13:26] LABS: CALCIUM 9.8 MG/DL (8.5-10.1)
[2021-02-20 13:31] LABS: CREATININE SERUM 0.75 MG/DL (0.60-1.30)
== END ==
LOC: LAB 12:47
PROVIDERS: ATTEND Internal Medicine Cardiovascular Disease
DX: E78.2 Mixed hyperlipidemia (principal); I42.9 Cardiomyopathy, unspecified
CPT/HCPCS: 36415; 80048; 80061

== ENCOUNTER → 2021-03-04 | Outpatient (CLI) | payer OTHER ==
[~2021-03-04] MED LIST changes: -CLIN-144 PO; +CLIN300C12 PO
[2021-03-04 10:18] LABS: CALCIUM 9.9 MG/DL (8.5-10.1); CREATININE SERUM 0.79 MG/DL (0.60-1.30); POTASSIUM 4.1 MMOL/L (3.6-5.0)
== END ==
LOC: LAB 09:35
PROVIDERS: ATTEND Internal Medicine Cardiovascular Disease
DX: I42.9 Cardiomyopathy, unspecified (principal); E78.2 Mixed hyperlipidemia
CPT/HCPCS: 36415; 80048; 80061

== ENCOUNTER 2021-03-23 16:13 | Outpatient (RCR) | payer SELFPAY ==
[~2021-03-23 16:13] MED LIST changes: +CLIN-144 PO; -CLIN300C12 PO
== END 2021-03-25 | disposition home or self-care (01) ==
LOC: CR3 16:13
PROVIDERS: ATTEND Internal Medicine Cardiovascular Disease
DX: Z29.8 Encounter for other specified prophylactic measures (principal)

== ENCOUNTER → 2021-03-30 | Outpatient (CLI) | payer OTHER | LOC: CARD 13:00 | PROVIDERS: ATTEND Internal Medicine Cardiovascular Disease | DX: I35.8 Other nonrheumatic aortic valve disorders (principal); I42.9 Cardiomyopathy, unspecified | CPT/HCPCS: 93306 ==

== ENCOUNTER → 2021-04-03 | Outpatient (CLI) | payer OTHER ==
[2021-04-03 09:07] LABS: CALCIUM 9.4 MG/DL (8.5-10.1); CREATININE SERUM 0.77 MG/DL (0.60-1.30); POTASSIUM 3.9 MMOL/L (3.6-5.0)
== END ==
LOC: LAB 08:13
PROVIDERS: ATTEND Internal Medicine Cardiovascular Disease
DX: E78.2 Mixed hyperlipidemia (principal); I42.9 Cardiomyopathy, unspecified
CPT/HCPCS: 36415; 80048; 80061

== ENCOUNTER → 2021-04-29 | Outpatient (RCR) | payer SELFPAY | END | disposition home or self-care (01) | LOC: CR3 03-30 15:06 | PROVIDERS: ATTEND Internal Medicine Cardiovascular Disease | DX: Z29.8 Encounter for other specified prophylactic measures (principal) ==

== ENCOUNTER 2021-06-12 14:06 | Outpatient (RCR) | payer SELFPAY | END 2021-06-14 | disposition home or self-care (01) | LOC: CR3 14:06 | PROVIDERS: ATTEND Internal Medicine Cardiovascular Disease | DX: Z29.8 Encounter for other specified prophylactic measures (principal) ==

== ENCOUNTER → 2021-07-15 | Outpatient (RCR) | payer SELFPAY | END | disposition home or self-care (01) | LOC: CR3 06-15 14:08 | PROVIDERS: ATTEND Internal Medicine Cardiovascular Disease | DX: Z29.8 Encounter for other specified prophylactic measures (principal) ==

== ENCOUNTER 2021-09-11 14:56 | Outpatient (RCR) | payer SELFPAY | END 2021-09-12 | disposition home or self-care (01) | LOC: CR3 14:56 | PROVIDERS: ATTEND Internal Medicine Cardiovascular Disease | DX: Z29.8 Encounter for other specified prophylactic measures (principal) ==

== ENCOUNTER → 2021-11-05 | Outpatient (CLI) | payer OTHER | LOC: CARD 11:00 | PROVIDERS: ATTEND Internal Medicine Cardiovascular Disease | DX: I42.9 Cardiomyopathy, unspecified (principal); I34.0 Nonrheumatic mitral (valve) insufficiency | CPT/HCPCS: 93306 ==

== ENCOUNTER 2021-11-06 14:10 | Outpatient (RCR) | payer SELFPAY | END 2021-11-12 | disposition home or self-care (01) | LOC: CR3 14:10 | PROVIDERS: ATTEND Internal Medicine Cardiovascular Disease | DX: Z29.8 Encounter for other specified prophylactic measures (principal) ==

== ENCOUNTER 2022-02-10 14:15 | Outpatient (RCR) | payer SELFPAY | END 2022-02-12 | disposition home or self-care (01) | LOC: CR3 14:15 | PROVIDERS: ATTEND Internal Medicine Cardiovascular Disease | DX: Z29.8 Encounter for other specified prophylactic measures (principal); I25.2 Old myocardial infarction; Z98.61 Coronary angioplasty status ==

== ENCOUNTER → 2022-04-14 | Outpatient (RCR) | payer SELFPAY | END | disposition home or self-care (01) | LOC: CR3 02-15 06:00 | PROVIDERS: ATTEND Internal Medicine Cardiovascular Disease | DX: Z29.8 Encounter for other specified prophylactic measures (principal) ==

== ENCOUNTER → 2022-05-06 | Outpatient (CLI) | payer OTHER ==
[2022-05-06 08:48] LABS: BILIRUBIN,TOTAL 0.3 MG/DL (0.1-1.0); CALCIUM 9.3 MG/DL (8.5-10.1); CREATININE SERUM 0.77 MG/DL (0.60-1.30); TOTAL PROTEIN 6.8 GM/DL (6.4-8.2)
== END ==
LOC: LAB 08:08
PROVIDERS: ATTEND Internal Medicine Cardiovascular Disease
DX: I25.10 Atherosclerotic heart disease of native coronary artery without angina pectoris (principal); I42.9 Cardiomyopathy, unspecified; I25.2 Old myocardial infarction; E78.2 Mixed hyperlipidemia; E66.9 Obesity, unspecified
CPT/HCPCS: 36415; 80053; 80061

== ENCOUNTER → 2022-06-14 | Outpatient (RCR) | payer SELFPAY | END | disposition home or self-care (01) | LOC: CR3 04-16 15:02 | PROVIDERS: ATTEND Internal Medicine Cardiovascular Disease | DX: Z29.8 Encounter for other specified prophylactic measures (principal) ==

== ENCOUNTER 2022-08-11 15:38 | Outpatient (RCR) | payer SELFPAY | END 2022-08-12 | disposition home or self-care (01) | LOC: CR3 15:38 | PROVIDERS: ATTEND Internal Medicine Cardiovascular Disease | DX: Z29.8 Encounter for other specified prophylactic measures (principal) ==

== ENCOUNTER 2022-08-20 11:37 | Emergency (ER) | payer OTHER ==
--- NOTE | 2022-08-20 12:02 | ED Cardiac General ---
History of Present Illness General Chief Complaint: Cardiac/General Problems Stated Complaint: HIGH BLOOD PRESSURE | FAST HEART RATE Nursing Triage Note: PT AMB TO RM 6 WITH CC OF HIGH BP AND INCREASE HR SINCE ABOUT 1100 THIS AM. PT STATES FELT "FUNNY" WHEN SHE WOKE UP THIS AM. REPORTS BP 139/89 AND HR 120 [employer]. PT DENIES CP, SOA, HERNANDEZ AND LH. PT REPORTS HX OF HEART ATTACK 2 YEARS AGO WHEN STENTS WERE PLACED. PT A&OX4 Source: patient Exam Limitations: no limitations History of Present Illness Date Seen by Provider: Aug 20, 2022 Time Seen by Provider: 11:47 Initial Comments 36-year-old female with history of coronary artery disease status post stents x3 2 years ago presents to the emergency department today for elevated heart rate and elevated blood pressure. She states she woke up and felt like something was wrong. She checked her blood pressure was 139/89. Heart rate was 120. She denies any dizziness, lightheadedness. No recent illnesses. She does not use caffeine, energy drinks, workout supplements or herbal supplements. No fevers chills cough chest pain abdominal pain or changes in bowel or bladder habits. symptoms have abated at this time. All other systems reviewed and negative except documented per HPI. Voice recognition software was used to help create this chart Allergies and Home Medications Allergies Coded Allergies: Penicillins (Verified Allergy, Unknown, 10/31/07) Patient Home Medication List Home Medication List Reviewed: Yes Aspirin (Aspirin EC) 81 Mg Tablet.dr, 81 MG PO DAILY Prescribed by: DONAL AGUILAR JR, MD on 01/01/21 0843 Calcium Carbonate (Tums) 300 Mg Tab.chew, 300-600 MG PO UD PRN for INDIGESTION, (Reported) Entered as Reported by: KEVIN DICKSON on 12/30/20 1007 L.acidoph & Paracasei,B.lactis (Probiotic) 1 Each Capsule, 1 EACH PO DAILY, (Reported) Entered as Reported by: KEVIN DICKSON on 12/30/20 1007 Multivitamin (Multivitamin) 1 Each Tablet, 1 EACH PO DAILY, (Reported) Entered as Reported by: KEVIN DICKSON on 12/30/20 1007 Nitroglycerin (Nitroglycerin) 0.4 Mg Tab.subl, 0.4 MG SL UD PRN for CHEST PAIN (ANGINA) Prescribed by: DONAL AGUILAR JR, MD on 01/01/21 0843 Rosuvastatin Calcium (Rosuvastatin Calcium) 20 Mg Tablet, 20 MG PO HS Prescribed by: DONAL AGUILAR JR, MD on 01/01/21 08 Ticagrelor (Brilinta) 90 Mg Tablet, 90 MG PO BID Prescribed by: DONAL AGUILAR JR, MD on 01/01/2143 Review of Systems Review of Systems Constitutional: see HPI Past [id number]-[id number] Hx Patient Social History Tobacco Use?: Yes Tobacco type used: Cigarettes Smoking Status: Former Smoker Substance use?: No Alcohol Use?: No Pt feels they are or have been: No Immunizations Up To Date Tetanus Booster (TDap): Less than 5yrs Influenza Vaccine Up-to-Date: No; Not Current Seasonal Allergies Seasonal Allergies: No Past Medical History Surgery/Hospitalization HX: 2 STENTS, HEART ATTCK 2 YRS AGO, HTN Surgeries: No Respiratory: No Cardiac: No Neurological: No Genitourinary: No Gastrointestinal: No Musculoskeletal: No Endocrine: No HEENT: No Cancer: No Psychosocial: No Integumentary: No Blood Disorders: No Family Medical History Cancer Physical Exam Vital Signs Vital Signs - First Documented 08/20/22 11:44 Temp 36.3 Pulse 99 Resp 13 B/P (MAP) 125/85 (98) Pulse Ox 98 O2 Delivery Room Air Capillary Refill : Less Than 3 Seconds Height, Weight, BMI Height: 5'8.00" Weight: 180lbs. 0oz. [id number]; 28.44 BMI Method:Stated General Appearance: No Apparent Distress HEENT: Normal ENT Inspection, Pharynx Normal Neck: Normal Inspection, Non Tender, Supple Respiratory: Chest Non Tender, Lungs Clear, Normal Breath Sounds Cardiovascular: Regular Rate, Rhythm, No Edema, No Gallop, No Murmur, Normal Peripheral Pulses Gastrointestinal: No Organomegaly, Non Tender, Soft Extremity: Normal Capillary Refill, Normal Inspection, Normal Range of Motion, Non Tender, No Calf Tenderness Neurologic/Psychiatric: Alert, Oriented x3 Skin: Normal Color, Warm/Dry Progress/Results/Core Measures Results/Orders Lab Results Laboratory Tests Test 08/20/22 11:49 Range/Units White Blood Count 10.3 4.3-11.0 10^3/uL Red Blood Count 4.80 3.80-5.11 10^6/uL Hemoglobin 14.1 11.5-16.0 g/dL Hematocrit 42 35-52 % Mean Corpuscular Volume 88 80-99 fL Mean Corpuscular Hemoglobin 29 25-34 pg Mean Corpuscular Hemoglobin Concent 33 32-36 g/dL Red Cell Distribution Width 12.9 10.0-14.5 % Platelet Count 248 130-400 10^3/uL Mean Platelet Volume 11.2 9.0-12.2 fL Immature Granulocyte % (Auto) 0 % Neutrophils (%) (Auto) 48 42-75 % Lymphocytes (%) (Auto) 44 12-44 % Monocytes (%) (Auto) 6 0-12 % Eosinophils (%) (Auto) 1 0-10 % Basophils (%) (Auto) 0 0-10 % Neutrophils # (Auto) 5.0 1.8-7.8 10^3/uL Lymphocytes # (Auto) 4.6 H 1.0-4.0 10^3/uL Monocytes # (Auto) 0.6 0.0-1.0 10^3/uL Eosinophils # (Auto) 0.1 0.0-0.3 10^3/uL Basophils # (Auto) 0.0 0.0-0.1 10^3/uL Immature Granulocyte # (Auto) 0.0 0.0-0.1 10^3/uL Sodium Level 138 135-145 MMOL/L Potassium Level 3.8 3.6-5.0 MMOL/L Chloride Level 105 98-107 MMOL/L Carbon Dioxide Level 25 21-32 MMOL/L Anion Gap 8 5-14 MMOL/L Blood Urea Nitrogen 13 7-18 MG/DL Creatinine 0.88 0.60-1.30 MG/DL Estimat Glomerular Filtration Rate 87 BUN/Creatinine Ratio 15 Glucose Level 102 70-105 MG/DL Calcium Level 9.5 8.5-10.1 MG/DL Troponin I < 0.028 <0.028 NG/ML My Orders Orders - ASHLEY LOPEZ DO Basic Metabolic Panel (08/20/22 11:59) Troponin I Konstantin (08/20/22 11:59) Cbc With Automated Diff (08/20/22 11:59) Vital Signs/I&O 08/20/22 11:44 Temp 36.3 Pulse 99 Resp 13 B/P (MAP) 125/85 (98) Pulse Ox 98 O2 Delivery Room Air Blood Pressure Mean: 98 Comment Sinus rhythm with a rate of 95 bpm. Normal intervals. Normal axis. No ST or T wave abnormalities. No ectopy. No STEMI. Departure Communication (Admissions) Patient is hemodynamically stable. Her symptoms are minimal however she was concerned about her elevated blood pressure and heart rate. She does not have an elevation of her blood pressure or heart rate on arrival here. EKG is nonischemic. Troponins negative. She will be discharged home with close follow-up and supportive care. She is comfortable agreeable current plan of care. Impression Primary Impression: Encounter for medical screening examination Disposition: HOME, SELF-CARE Condition: Stable Departure-Patient Inst. Referrals: KEVIN EL DO (PCP/Family) Primary Care Physician Add. Discharge Instructions: He was seen in the emergency department today for elevated blood pressure and heart rate. Your blood pressure and heart rate were normal and you were seen here. Your electrolytes are normal. You are not anemic. There is no indication that there is any complication related to your heart. Return to the emergency department for any severe concerns. Follow-up with primary doctor for any nonemergent needs. All discharge instructions reviewed with patient and/or family. Voiced understanding. ASHLEY LOPEZ DO Aug 20, 2022 12:02
[2022-08-20 12:04] LABS: BASOPHILS % (AUTO) 0 % (0-10); EOSINOPHILS # (AUTO) 0.1 10^3/uL (0.0-0.3); EOSINOPHILS % (AUTO) 1 % (0-10); HEMATOCRIT 42 % (35-52); HEMOGLOBIN 14.1 g/dL (11.5-16.0); LYMPHOCYTES # (AUTO) 4.6 10^3/uL (1.0-4.0); LYMPHOCYTES % (AUTO) 44 % (12-44); MEAN CORPUSCULAR HEMOGLOBIN 29 pg (25-34); MEAN CORPUSCULAR HGB CONC 33 g/dL (32-36); MEAN CORPUSCULAR VOLUME 88 fL (80-99); MEAN PLATELET VOLUME 11.2 fL (9.0-12.2); MONOCYTES # (AUTO) 0.6 10^3/uL (0.0-1.0); MONOCYTES % (AUTO) 6 % (0-12); NEUTROPHILS % (AUTO) 48 % (42-75); PLATELET COUNT 248 10^3/uL (130-400); WHITE BLOOD COUNT 10.3 10^3/uL (4.3-11.0)
[2022-08-20 12:07] LABS: CHLORIDE 105 MMOL/L (98-107); POTASSIUM 3.8 MMOL/L (3.6-5.0); SODIUM 138 MMOL/L (135-145)
[2022-08-20 12:08] LABS: CALCIUM 9.5 MG/DL (8.5-10.1); GLUCOSE 102 MG/DL (70-105)
[2022-08-20 12:10] LABS: CARBON DIOXIDE 25 MMOL/L (21-32)
[2022-08-20 12:12] LABS: CREATININE SERUM 0.88 MG/DL (0.60-1.30); GFR ESTIMATED 87
[2022-08-20 12:13] LABS: BUN/CREATININE RATIO 15
[2022-08-20 12:31] VITALS: BP 118/84
== END 2022-08-20 12:31 | disposition home or self-care (01) ==
LOC: EDUNIT# 11:37 → ER 11:39
DX: Z00.00 Encounter for general adult medical examination without abnormal findings (principal); F17.210 Nicotine dependence, cigarettes, uncomplicated; Z28.310 Unvaccinated for COVID-19
CPT/HCPCS: 36415; 80048; 84484; 85025; 93005

== ENCOUNTER 2022-09-10 15:38 | Outpatient (RCR) | payer SELFPAY | END 2022-09-12 | disposition home or self-care (01) | LOC: CR3 15:38 | PROVIDERS: ATTEND Internal Medicine Cardiovascular Disease | DX: Z29.8 Encounter for other specified prophylactic measures (principal) ==

== ENCOUNTER → 2022-10-15 | Outpatient (CLI) | payer OTHER ==
[2022-10-15 12:34] LABS: POTASSIUM 4.3 MMOL/L (3.6-5.0)
[2022-10-15 12:35] LABS: ALBUMIN 3.9 GM/DL (3.2-4.5)
[2022-10-15 12:36] LABS: CALCIUM 9.3 MG/DL (8.5-10.1)
[2022-10-15 12:37] LABS: TOTAL PROTEIN 6.7 GM/DL (6.4-8.2)
[2022-10-15 12:39] LABS: BILIRUBIN,TOTAL 0.4 MG/DL (0.1-1.0)
[2022-10-15 12:41] LABS: CREATININE SERUM 0.85 MG/DL (0.60-1.30)
== END ==
LOC: LAB 11:55
PROVIDERS: ATTEND Internal Medicine Cardiovascular Disease
DX: I11.0 Hypertensive heart disease with heart failure (principal); I50.22 Chronic systolic (congestive) heart failure; I25.10 Atherosclerotic heart disease of native coronary artery without angina pectoris; E78.2 Mixed hyperlipidemia
CPT/HCPCS: 36415; 80053; 80061

== ENCOUNTER → 2022-10-27 | Outpatient (CLI) | payer OTHER | LOC: CARD 09:15 | PROVIDERS: ATTEND Internal Medicine Cardiovascular Disease | DX: I10 Essential (primary) hypertension (principal); I25.10 Atherosclerotic heart disease of native coronary artery without angina pectoris | CPT/HCPCS: 93306 ==

== ENCOUNTER 2022-11-10 15:44 | Outpatient (RCR) | payer SELFPAY | END 2022-11-12 | disposition home or self-care (01) | LOC: CR3 15:44 | PROVIDERS: ATTEND Internal Medicine Cardiovascular Disease | DX: Z29.8 Encounter for other specified prophylactic measures (principal) ==

== ENCOUNTER → 2022-12-13 | Outpatient (CLI) | payer OTHER ==
[~2022-12-13] MED LIST changes: -ROSU20TA32 PO; +ROSU20TA73 PO
[2022-12-13 10:52] VITALS: BP 113/64
--- NOTE | 2022-12-13 16:57 | Cardiology Stress Test Report ---
Stress Test Report Date of Procedure/Referring: Date of Procedure: Dec 13, 2022 PCP Kevin Zaman DO Admitting Physician Admitting Physician: Attending Physician: Prachi Huff MD Baseline Heart Rate: 72 Baseline Blood Pressure: Blood Pressure Systolic: 113 Blood Pressure Diastolic: 64 Baseline EKG: Baseline EKG: NSR Summary/Conclusion: Summary: In summary, the patient started exercising with a baseline heart rate, blood pressure and EKG mentioned above Patient was able to exercise for a total of 7 minutes on Abdullahi protocol, METs 8.5 Maximum heart rate 173 Maximum blood pressure 130/84 Stress EKG, Minimal nondiagnostic changes Recovery EKG , Return to baseline Conclusion: 1. Good exercise tolerance for a total of 7 minutes on Abdullahi protocol, 8.5 METs, achieving 94 percent of maximum expected heart rate 2. Minimal nondiagnostic EKG changes with exercise returned to baseline during recovery 3. No arrhythmia was noted Copy Copies To 1: KEVIN ZAMAN BASHAR J MD Dec 13, 2022 16:57
== END ==
LOC: CARD 09:45
PROVIDERS: ATTEND Internal Medicine Cardiovascular Disease
DX: I10 Essential (primary) hypertension (principal); I25.10 Atherosclerotic heart disease of native coronary artery without angina pectoris
CPT/HCPCS: 93017

== ENCOUNTER → 2023-01-12 | Outpatient (RCR) | payer SELFPAY | END | disposition home or self-care (01) | LOC: CR3 11-15 15:00 | PROVIDERS: ATTEND Internal Medicine Cardiovascular Disease | DX: Z29.8 Encounter for other specified prophylactic measures (principal) ==

== ENCOUNTER → 2023-03-14 | Outpatient (RCR) | payer SELFPAY | END | disposition home or self-care (01) | LOC: CR3 01-19 14:04 | PROVIDERS: ATTEND Internal Medicine Cardiovascular Disease | DX: Z01.89 Encounter for other specified special examinations (principal) ==